=== PATIENT | female | born 1950 | race Caucasian/White ===

== ENCOUNTER → 2023-08-14 12:20 | Outpatient (REF) | payer MEDICARE, SELFPAY ==
[2023-08-14 14:09] LABS: % Basophils 0.8 % (0-2); % Eosinophils 1.1 % (0-6); % Immature Granulocytes 0.1 % (0-0.5); % Lymphocytes 38.9 % (20.5-51.1); % Monocytes 8.5 % (1.7-9.3); % Neutrophils 50.6 % (42.2-75.2); Absolute Basophils 0.1 10^3/uL (0-0.2); Absolute Eosinophils 0.1 10^3/uL (0-0.7); Absolute Lymphocytes 3.3 10^3/uL (1.2-3.4); Absolute Monocytes 0.7 10^3/uL (0.1-0.6); Absolute Neutrophils 4.3 10^3/uL (1.4-6.5); Hematocrit 44.1 % (37.0-47.0); Hemoglobin 14.2 g/dL (12.0-16.0); Mean Corp Hgb Conc. 32.2 g/dL (33.0-37.0); Mean Corpuscular Hgb 33.1 pg (27.0-31.0); Mean Corpuscular Volume 102.8 fL (81.0-99.0); Mean Platelet Volume 11.8 fL (7.4-10.4); Nucleated Red Blood Cells % 0 %; Platelet Count 276 10^3/uL (130-400); Red Blood Cell Count 4.29 10^6/uL (4.20-5.40); Red Cell Dist. Width 14.6 % (11.5-14.5); White Blood Cell Count 8.4 10^3/uL (4.8-10.8)
[2023-08-14 14:53] LABS: TSH 2.75 uIU/ml (0.47-4.68)
[2023-08-14 15:42] LABS: ALT (SGPT) 18 U/L (0-35); AST (SGOT) 26 U/L (14-36); Albumin 4.1 g/dl (3.5-5.0); Alkaline Phosphatase 75 U/L (38-126); Blood Urea Nitrogen 16 mg/dl (7-17); Calcium 9.7 mg/dl (8.4-10.2); Carbon Dioxide 33 mmol/L (22-30); Chloride 98 mmol/L (98-107); Glucose 86 mg/dl (70-99); HDL Cholesterol 62 mg/dl; LDL Cholesterol, Calculated 72 mg/dl; Potassium 4.1 mmol/L (3.5-5.1); Sodium 138 mmol/L (135-145); Total Bilirubin 0.5 mg/dl (0.2-1.3); Total Cholesterol 155 mg/dl (50-199); Total Protein 6.7 g/dl (6.3-8.2); Triglyceride 107 mg/dl (10-149); Very Low Density Lipoprotein 21 mg/dl (0-30); eGFR > 60.00
[2023-08-15 09:34] LABS: Intact PTH 93.4 pg/ml (13.6-85.8)
== END ==
LOC: RAD 12:20
PROVIDERS: Family Medicine; ATTENDING PHYSICIAN Internal Medicine Cardiovascular Disease; FAMILY PHYSICIAN Internal Medicine Geriatric Medicine; REFERRING PHYSICIAN Internal Medicine Rheumatology
DX: E20.89 Other specified hypoparathyroidism (principal); E55.9 Vitamin D deficiency, unspecified; M80.00XA Age-related osteoporosis with current pathological fracture, unspecified site, initial encounter for fracture; Z51.81 Encounter for therapeutic drug level monitoring; E78.00 Pure hypercholesterolemia, unspecified; Z79.899 Other long term (current) drug therapy; M54.16 Radiculopathy, lumbar region; M48.062 Spinal stenosis, lumbar region with neurogenic claudication
CPT/HCPCS: 36415; 72110; 80053; 80061; 82306; 83970; 84443; 85025

== ENCOUNTER 2023-08-25 14:49 | Emergency (ER) | payer MEDICARE, SELFPAY ==
[2023-08-25 14:51] VITALS: BP 139/64; BMI 36.1
--- NOTE | 2023-08-25 15:18 | EDRN ---
Brian CALZADA in room w/ pt at this time.
--- NOTE | 2023-08-25 15:25 | ED.GENMED ---
History of Present Illness
General
Chief Complaint: Extremity Pain (non-traumatic)
Source: patient
Exam Limitations: none
Time Seen by Provider: 08/25/23 15:01
Nursing documentation reviewed up to this point in time: agreed with
Travel History
Have you had any contact with someone who has COVID-19?: No
Do you have any symptoms of coronavirus? Fever > 100 degrees, chills, cough, shortness of breath, sore throat, loss of taste or smell, muscle aches, or headache?: No
History of Present Illness
History of Present Illness:
Patient is a 72-year-old female with history atrial fibrillation on Eliquis, CHF, CAD, hypertension, osteoporosis presenting for evaluation of left shoulder pain. Patient states pain started on Monday and has progressively been worsening since.
She reports pain in the anterior and posterior aspect of shoulder radiating down through the left arm. Patient denies any numbness or tingling in left upper extremity. Pain has been very severe and not relieved with Tylenol. She is unable to
actively move her left arm. She denies any chest pain, shortness of breath, abdominal pain.
Patient does also report having a headache yesterday with some pain in her neck. This has since resolved.
Of note�patient did receive a Prolia injection in her left deltoid on Monday08/16/23. She receives injections every 6 months. She has never had a reaction in the past.
Patient does have known rotator cuff injuries.
Past History
Past History
ED Past Medical History: Arrthythmia (afib), CAD, CVA (TIA), GERD, HTN, Hypercholesterolemia, PR and Other (Orthostatic hypotension, Diverticulitis, Diastolic heart failrue)
ED Past Surgical History: Appendectomy, Cardiac (PTCA with stent), Cholecystectomy, Gynecological (hyster) and Orthopedic (right TKR, left elbow, b/l rotator cuff)
Social History
Tobacco: Smoker
Alcohol: None
Drug: None
Personal:
Living: with family
Employment: Not employed
Family History
Family History: Other (Noncontributory)
Phy Exam
Physical Exam
Physical Exam:
General: Well appearing and non-toxic
Vitals: Vital signs stable, afebrile
HEENT: Atraumatic, normocephalic; pupils equal round and reactive light bilaterally,protecting airway
Neck: appears supple, normal range of motion, no cervical spine tenderness or midline spinal tenderness
CV: Regular rate and rhythm, no evidence of cyanosis
Resp: No evidence of respiratory distress, diminished at bases, no accessory muscle use
Abd: Non-distended
Extremities: Significant pain and limited range of motion of left arm, no bony tenderness or obvious deformity/ swelling, left upper extremity neurovascularly intact
Neuro: alert and oriented x 3; grossly intact
Psych: Normal affect
Skin: Intact, no rashes or bruising
Course
Orders/Labs/Results
Orders:
Orders
08/25/23 15:36
Oxycodone/Acetaminophen [Percocet 5/325] 1 tablet PO NOW STA
Shoulder, Left 2 View CR [CR Shoulder - Left Min 2 View*] Urgent
Comment:
Reason For Exam: Atraumatic left shoulder and arm pain
08/25/23 15:57
CPK [Creatine Phosphokinase] Urgent
Complete Blood Count/With Diff Urgent
Comprehensive Metabolic Panel Urgent
08/25/23 17:10
Sling Left-Treatment ONCE
Abnormal Lab Results
08/25/23
15:57
RBC 4.01 L 10^6/uL
(4.20-5.40)
MCV 104.5 H fL
(81.0-99.0)
MCH 33.2 H pg
(27.0-31.0)
MCHC 31.7 L g/dL
(33.0-37.0)
MPV 11.3 H fL
(7.4-10.4)
Absolute Monos (auto) 0.8 H 10^3/uL
(0.1-0.6)
Monocytes % 10.0 H %
(1.7-9.3)
Glucose 137 H mg/dl
(70-99)
08/25/23 15:57
08/25/23 15:57
Vital Signs
Initial and Last Documented VS:
Initial Vital Signs
Temp Pulse Resp BP Pulse Ox
98.2 F 66 16 139/64 99
08/25/23 14:51 08/25/23 14:51 08/25/23 14:51 08/25/23 14:51 08/25/23 14:51
Last Documented Vital Signs
Temp Pulse Resp BP Pulse Ox
98.2 F 63 18 136/69 93
08/25/23 14:51 08/25/23 16:43 08/25/23 16:43 08/25/23 16:43 08/25/23 16:43
MDM/Problems Addressed
Differential Diagnosis Includes:
Rotator cuff injury, tendinitis, muscular strain, medication side effect, rhabdomyolysis, doubt fracture, highly doubt ACS
MDM/Problems Addressed:
Patient is a 72-year-old female with history as documented presenting for evaluation of atraumatic left shoulder and arm pain. She did receive Prolia injection and left deltoid 10 days ago with pain starting 7 days following injection. And
worsening since. She endorses significant pain left shoulder rating down left arm and associated weakness. No relief with Tylenol. Patient's vital signs are stable, physical exam as documented above. She does have significant pain to left
anterior lateral pectineus muscle, bicep. She has significant reduced range of motion due to pain in left arm. Left arm is neurovascularly intact. Pain is clearly reproducible on exam. Do not suspect ACS. Percocet for pain. Will check x-ray of
shoulder and basic labs, CPK to rule out rhabdo. I do not suspect that this is related to Prolia injection given pain did not start until 1 week following injection.
4:25�reassessed patient at bedside. She endorses somewhat improvement since Percocet. X-ray pending. Labs noted. CK is normal.
X-ray shows no evidence of acute fracture or dislocation. 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 This appears consistent with patient's symptoms.
Pain is definitely improved and patient appears more comfortable after Percocet. Will discharge with shoulder sling, Percocet, Ortho follow-up. Patient comfortable this plan. Will follow-up with Dr. Montes on Monday. All questions answered.
Chronic conditions affecting care:
Osteoporosis
Acute Exacerbation and/or Progression of Chronic Illness:
N/A
*Radiology
Radiology exam reviewed: preliminary read by ED provider and radiology read reviewed
*Pulse Oximetry
Patient hypoxic: no
*EKG
Interpreted by ED Provider?: NA
*Supervisor Sample Interpretation
Rate: Supervisor Sample- N/A
*Critical Care Note
Total Time (30-74mins, 75-104mins- exclusive of procedures): Not Applicable
ED Attending Note
-
Portions of this chart may have been created with voice recognition software.� Occasional wrong word or��sound alike� substitutions may have occurred due to the inherent limitations of voice recognition software.
Discharge Plan
Departure
Patient Disposition: Home (Routine Discharge)
Date of Disposition: 08/25/23
Time of Disposition: 17:29
Patient with high blood pressure during this ER visit?: No
Condition: Good
Covid-19: Not Applicable
Discharge Problem:
Left shoulder pain
Instructions: Rotator Cuff Injury (DC), Shoulder Impingement (DC)
Prescriptions:
New
oxycodone 5 mg tablet
5 mg PO Q6H PRN (Reason: Pain) Qty: 10 0RF
No Action
rosuvastatin 20 MG tablet
20 mg PO HS
clopidogrel 75 MG tablet
75 mg PO HS Qty: 0 0RF
Rx Instructions:
resume 5/14 pm
Eliquis 5 MG tablet
5 mg PO BID Qty: 0 0RF
Spiriva
2 puff inhalation AMHS
amiodarone 200 mg Tablet
200 mg PO BID
furosemide 80 mg Tablet
80 mg PO DAILY
aspirin 81 mg Tablet
81 mg MOWEFR
ezetimibe [Zetia] 10 mg Tablet
10 mg PO DAILY
nebivolol 10 mg Tablet
10 mg PO DAILY
B12 5,000-100 mcg Lozenge
1 samia SUBLINGUAL DAILY
lorazepam 0.5 mg Tablet
0.5 mg PO DAILY PRN (Reason: anxiety)
Patient Comments:
last taken 6 months ago pre MRI
ascorbic acid (vitamin C) [Vitamin C] 500 mg Tablet,Chewable
1,500 mg PO DAILY
Patient Comments:
pt takes 3 500mg tabs daily
nitroglycerin [Nitrostat] 0.4 mg Tablet, Sublingual
0.4 mg SUBLINGUAL Q5-15M PRN (Reason: rescue)
Patient Comments:
pt has script, but has never used
levalbuterol tartrate [Xopenex HFA] 45 mcg/actuation Hfa Aerosol Inhaler
2 inh INHALATION Q6H PRN (Reason: breathing)
Patient Comments:
pt last used rescue inhaler approx 6 weeks ago
cholecalciferol (vitamin D3) [Vitamin D3] 50 mcg (2,000 unit) Capsule
50 mcg PO DAILY
Calcium 500 capsule
1,500 mg PO DAILY
Patient Comments:
3 - 500mg tabs daily
Referrals:
Christos Montes MD [Active] - Next open appointment
Salvador Sterling MD [Family Provider] -
Activity Restrictions/Additional Instructions:
-Return to the emergency department with any chest pain, shortness of breath, high fevers, numbness/tingling in left arm, intractable pain, worsening in current symptoms, or any other concerns
-You should continue to take Tylenol for mild pain. A prescription has been sent to your pharmacy for oxycodone. You can take this as needed for severe pain. This may cause drowsiness. You should not drive while taking this medication
-As discussed�it is important that you continue to move your shoulder around as often as possible to avoid frozen shoulder. Do not sleep with your arm and shoulder sling
-As discussed�I do not believe that your pain is due to your most recent injection. But you should follow-up with your chief of production for their input/further manage
-Follow-up with orthopedics in the next few days for further evaluation/manage
Interventions
Interventions:
*Risk Screen - Suicide Last Done: 08/25/23 14:51
*General Assessment Last Done: 08/25/23 15:33
*Neglect/Abuse Screening Last Done: 08/25/23 14:51
ED- Fall Risk Assessment Last Done: 08/25/23 15:33
*ED COVID-19 Vaccine History Last Done: 08/25/23 14:51
*Nursing Disposition Last Done: 08/25/23 17:40
ED-Skin Assessment Last Done: 08/25/23 15:36
ED-Peripheral Vascular Assessment Last Done: 08/25/23 15:36
ED-Musculoskeletal Assessment Last Done: 08/25/23 15:36
Discharge Date and Time
Discharge Date/Time: 08/25/23 17:40
Print Language: DOMINICAN
--- NOTE | 2023-08-25 15:50 | EDRN ---
Labs drawn and sent.
[2023-08-25] MEDS: PERCOCET 5/325 1 TABLET PO (15:51)
[2023-08-25 16:04] LABS: % Basophils 0.7 % (0-2); % Eosinophils 0.7 % (0-6); % Immature Granulocytes 0.2 % (0-0.5); % Lymphocytes 25.4 % (20.5-51.1); Absolute Basophils 0.1 10^3/uL (0-0.2); Absolute Eosinophils 0.1 10^3/uL (0-0.7); Absolute Lymphocytes 2.1 10^3/uL (1.2-3.4); Absolute Monocytes 0.8 10^3/uL (0.1-0.6); Absolute Neutrophils 5.3 10^3/uL (1.4-6.5); Hematocrit 41.9 % (37.0-47.0); Hemoglobin 13.3 g/dL (12.0-16.0); Mean Corp Hgb Conc. 31.7 g/dL (33.0-37.0); Mean Corpuscular Hgb 33.2 pg (27.0-31.0); Mean Corpuscular Volume 104.5 fL (81.0-99.0); Mean Platelet Volume 11.3 fL (7.4-10.4); Nucleated Red Blood Cells % 0 %; Platelet Count 260 10^3/uL (130-400); Red Blood Cell Count 4.01 10^6/uL (4.20-5.40); Red Cell Dist. Width 14.4 % (11.5-14.5); White Blood Cell Count 8.4 10^3/uL (4.8-10.8)
[2023-08-25 16:17] LABS: ALT (SGPT) 15 U/L (0-35); AST (SGOT) 22 U/L (14-36); Albumin 3.7 g/dl (3.5-5.0); Alkaline Phosphatase 65 U/L (38-126); Blood Urea Nitrogen 15 mg/dl (7-17); Calcium 9.2 mg/dl (8.4-10.2); Carbon Dioxide 30 mmol/L (22-30); Chloride 104 mmol/L (98-107); Creatine Phosphokinase 34 U/L (30-135); Estimated Creatinine Clearance 75 ml/min; Glucose 137 mg/dl (70-99); Potassium 4.7 mmol/L (3.5-5.1); Sodium 135 mmol/L (135-145); Total Bilirubin 0.3 mg/dl (0.2-1.3); Total Protein 6.3 g/dl (6.3-8.2); eGFR > 60.00
[2023-08-25 16:43] VITALS: BP 136/69
--- NOTE | 2023-08-25 17:40 | EDRN ---
Pt discharged solely by Brian CALZADA at this time.
== END 2023-08-25 17:40 | disposition home or self-care (01) ==
LOC: EMR 14:49
PROVIDERS: Physician Assistant; EMERGENCY PHYSICIAN Emergency Medicine; FAMILY PHYSICIAN Internal Medicine Geriatric Medicine
DX: M25.512 Pain in left shoulder (principal); M79.602 Pain in left arm; M62.81 Muscle weakness (generalized); M54.2 Cervicalgia; R51.9 Headache, unspecified; M81.0 Age-related osteoporosis without current pathological fracture; I48.91 Unspecified atrial fibrillation; I25.10 Atherosclerotic heart disease of native coronary artery without angina pectoris; I11.0 Hypertensive heart disease with heart failure; I50.30 Unspecified diastolic (congestive) heart failure; K57.92 Diverticulitis of intestine, part unspecified, without perforation or abscess without bleeding; I42.9 Cardiomyopathy, unspecified; K44.9 Diaphragmatic hernia without obstruction or gangrene; M19.90 Unspecified osteoarthritis, unspecified site; M79.7 Fibromyalgia; K58.9 Irritable bowel syndrome, unspecified; K21.9 Gastro-esophageal reflux disease without esophagitis; E78.00 Pure hypercholesterolemia, unspecified; F17.210 Nicotine dependence, cigarettes, uncomplicated; I25.2 Old myocardial infarction; Z95.5 Presence of coronary angioplasty implant and graft; Z96.651 Presence of right artificial knee joint; Z96.622 Presence of left artificial elbow joint; Z86.73 Personal history of transient ischemic attack (TIA), and cerebral infarction without residual deficits; Z86.74 Personal history of sudden cardiac arrest
CPT/HCPCS: 99283; 73030; 80053; 82550; 85025

== ENCOUNTER 2023-08-28 22:23 | Inpatient (IN) | payer MEDICARE, SELFPAY ==
[2023-08-28 11:12] VITALS: BP 138/73
--- NOTE | 2023-08-28 12:46 | ED.GENMED ---
History of Present Illness
<Sendy Baxter [employer]ER - Last Filed: 08/30/23 14:42>
General
Chief Complaint: Headache
Source: patient
Exam Limitations: none
Time Seen by Provider: 08/28/23 11:45
Nursing documentation reviewed up to this point in time: agreed with
Travel History
Have you had any contact with someone who has COVID-19?: No
Do you have any symptoms of coronavirus? Fever > 100 degrees, chills, cough, shortness of breath, sore throat, loss of taste or smell, muscle aches, or headache?: No
History of Present Illness
History of Present Illness:
72-year-old female with history of frequent headaches, TIA, smoker, A-fib on Eliquis and clopidogrel, cardiac arrest, cardiomyopathy, CHF, CAD, HLD, HTN, TX, GERD presents with headache, nausea/vomiting, denies change in vision, no recent trauma,
anticoagulated on Eliquis. Pain goes up the back of her neck up and over her head. Pain was intermittent initially but worsened 2 days ago.
Has been taking Oxycodone for left shoulder and arm pain with no relief of the headache.
She has out pt CT abdomen scheduled today for 'lump' in abdomen (r/o hernia), 'horrible' belching, she has to be prepped and couldn't do it due to nausea
she has developed a cough past few days and is concerned she aspirated as she has done so in the past.
Past History
<Sendy Baxter [employer] - Last Filed: 08/30/23 14:42>
Past History
ED Past Medical History: Arrthythmia (afib), CAD, CVA (TIA), GERD, HTN, Hypercholesterolemia, TX and Other (Orthostatic hypotension, Diverticulitis, Diastolic heart failrue)
ED Past Surgical History: Appendectomy, Cardiac (PTCA with stent), Cholecystectomy, Gynecological (hyster) and Orthopedic (right TKR, left elbow, b/l rotator cuff)
Social History
Tobacco: Smoker
Alcohol: None
Drug: None
Personal:
Living: with family
Employment: Not employed
Family History
Family History: Other (Noncontributory)
Review of Systems
<Sendy Baxter, LIQU[employer]ER - Last Filed: 08/30/23 14:42>
Review of Systems
Allergies reviewed?: Yes
All Other Systems: ROS reviewed and negative except as documented in HPI and ROS
Constitutional: Denies fever
EENT: Reports other (clogged feeling left ear since this a.m.); Denies sore throat
Respiratory: Reports cough
Cardiac: Denies chest pain
ABD/GI: Reports abdominal pain ('lump, hernia' near umbilicus has out pt CT ordered); Denies nausea, vomiting, diarrhea, constipated, bloody stools, black stools or anorexia
: Denies dysuria, frequency, incontinence, difficulty voiding or urgency
Musculoskeletal: Reports neck pain and other (After receiving Prolia IM injection in L upper arm 08/15, has had significant left arm pain radiating to left lateral chest area); Denies edema
Skin: Reports no symptoms
Neurological: Reports headache; Denies dizzy or weakness
Phy Exam
<Sendy Baxter, LIQU[employer]ER - Last Filed: 08/30/23 14:42>
Physical Exam
Physical Exam:
GENERAL: No acute distress. A&Ox3.
CONSTITUTIONAL: Afebrile.
EYES: PERRL, conjunctivae normal, EOMs intact
Neck: Supple, no lymphadenopathy
ENMT: moist mucus membranes, Pharynx nl, TMs normal, ear canals clear
RESPIRATORY: Regular respirations, nonlabored, lungs clear.
CARDIOVASCULAR: Regular rate and rhythm, no murmurs, no rubs.
GI: Soft, nontender mobile mass just to right of umbilicus. Rest of abdomen non tender. Normal BS
MUSCULOSKELETAL: Left arm in sling, limited ROM due to pain, distal neurovascular intact. No edema. Well perfused.
SKIN: Warm, dry, pink
PSYCH: Normal mood and affect. Well kept, interactive and appropriate
NEUROLOGIC: Awake, alert and oriented. Speech clear. Strength equal throughout. No focal neurological deficits
Course
<Sendy Sargent Day, LIQU[employer]KER - Last Filed: 08/30/23 14:42>
Orders/Labs/Results
Orders:
Orders
08/28/23 12:58
0.9% Sodium Chloride 500 ml [Nss] 500 ml IV BOLUS
HYDROmorphone [Dilaudid] 0.5 mg IV NOW STA
Ondansetron Injectable [Zofran] 4 mg IV NOW STA
08/28/23 13:17
CR Chest - 2 Views Urgent
Comment:
Reason For Exam: cough, hx aspiration pna
08/28/23 13:25
Urinalysis Reflex To Culture Urgent
Date Specimen was Collected: 08/28/23
Time Specimen was Collected: 13:23
Urine Microscopic Reflex Cult Urgent
Urine Culture Urgent
JAYDEN Source: U
Specimen Description:
Date Specimen was Collected: 08/28/23
Time Specimen was Collected: 13:23
08/28/23 14:24
Complete Blood Count/With Diff Urgent
08/28/23 14:37
Ipratropium/Albuterol Sulfate [Duoneb] 3 ml .ROUTE .STK-MED ONE
08/28/23 14:41
Levalbuterol [Xopenex 1.25 mg Inhalant Solution] 1.25 mg .ROUTE .STK-MED ONE
08/28/23 14:42
Levalbuterol [Xopenex 1.25 mg Inhalant Solution] 1.25 mg INH R NOW STA
Levalbuterol [Xopenex 1.25 mg Inhalant Solution] 1.25 mg INH R NOW STA
08/28/23 Dinner
NPO
Allow oral meds: Yes
Allow clear liquids: Sips of Clears
NPO with Ice Chips: Yes
08/28/23 16:11
CT Head W/o Iv Contrast Urgent
Comment:
Reason For Exam: headache, on Eliquis
08/28/23 16:30
Comprehensive Metabolic Panel Urgent
08/28/23 17:15
ABG [Arterial Blood Gas] Urgent
%Oxygen/Room Air: Room air
08/28/23 17:23
Methemoglobin Urgent
08/28/23 17:40
O2 Therapy [RESP] Urgent
Nasal Cannula Liter Flow: 3 LPM
Titrate/Wean O2 to maintain O2 sat greater than (%): 94
08/28/23 17:41
CT Chest Pe Study Urgent
Comment:
Reason For Exam: cough, hypoxemia
08/28/23 18:06
Diphenhydramine [Benadryl] 50 mg IV NOW STA
Hydrocortisone Sod Succinate [Solu-Cortef] 200 mg IV NOW STA
08/28/23 18:21
COVID-19 Antigen Urgent
Source: Nasal Swab
08/28/23 18:53
Levalbuterol [Xopenex 1.25 mg Inhalant Solution] 1.25 mg .ROUTE .STK-MED ONE
08/28/23 18:54
Levalbuterol [Xopenex 1.25 mg Inhalant Solution] 1.25 mg INH R NOW STA
08/28/23 21:06
Azithromycin 500 mg/250 ml [Zithromax Infusion] 500 mg in 250 ml IV NOW
CefTRIAXone [Rocephin] 1,000 mg IV NOW STA
08/28/23 21:08
Electrocardiogram (*1) Urgent
Reason for Study: QTc Monitoring
EKG- Treatment ONCE
08/28/23 21:18
Sterile Water [Sterile Water For Injection] 10 ml .ROUTE .STK-MED ONE
08/28/23 21:50
Admit/Transfer Patient As Directed
Co-Sign Provider:
Level of Care: Inpatient admission
Assign to:: Telemetry
Physician / Group: shaniqua
Diagnosis: nausea/vomiting
Reason for Telemetry: Arrhythmia
Date to Stop Telemetry: 08/31/23
Time to Stop Telemetry: 11:00
Reason for Hospitalization: nausea/vomiting
Expected length of stay greater than two midnights?: Yes
ELOS- Estimated Length of Stay in days: 2
I certify the patient meets the requirements for IP care: Yes
08/28/23 21:51
Code Status As Directed
Resuscitation Status: Full Code
08/28/23 21:52
Sputum Culture [Respiratory Culture/Gram Stain] Urgent
JAYDEN Source: Sputum
Specimen Description:
08/28/23 21:55
Blood Culture Q30M
JAYDEN Source: Blood/Venous
Specimen Description:
Blood Culture Q30M
JAYDEN Source: Blood/Venous
Specimen Description:
Influenza A+B Rapid Molecular Urgent
JAYDEN Source: Nasal Swab
Specimen Description:
08/28/23 22:01
Consult Notification Routine
Specialty to Notify: Neurology
Date consulting provider notified: 08/29/23
Time consulting provider notified: 07:55
Notified:: Provider
NEUROLOGY CONSULT Routine
Consulting Provider: Thierno Stokes
Was physician already notified: No
Reason for consult: cva vs mass
08/28/23 23:06
Acetaminophen [Tylenol] 1,000 mg PO BIDPRN PRN
Ipratropium Nebs [Atrovent Nebules] 0.5 mg INH R Q8HPRN PRN
Levalbuterol Tartrate [Xopenex Hfa 45 Mcg Inhaler] 1 puff INH R Q4HPRN PRN
Ondansetron Injectable [Zofran] 4 mg IV Q6HPRN PRN
Ondansetron Orally Disint [Zofran Odt (Orally Disintegrating)] 4 mg PO [id number] PRN
Oxycodone [Roxicodone] 5 mg PO Q6HPRN PRN
08/28/23 23:06
Activity As Directed
Activity Level: As Tolerated
NIH Stroke Scale As Directed
Directions: Per protocol
Neurological Checks As Directed
Frequency: Per unit guidelines
Pneumatic Compression Sleeves As Directed
Type: Knee high
Vital Signs As Directed
Frequency: Per unit guidelines
Xopenex Reason for Use As Directed
Reason for ordering Xopenex instead of Albuterol: tachy
DX Deep Vein Thrombosis Video Routine
08/29/23 00:00
Doxycycline Hyclate [Vibramycin] 100 mg 0.9% Sodium Chloride 250 ml [Nss] 250 ml IV Q12H
08/29/23 06:22
Complete Blood Count/With Diff IN AM
Comprehensive Metabolic Panel IN AM
08/29/23 08:00
Calcium Carbonate [Oscal Dong 500] 1,500 mg PO BID
Furosemide [Lasix] 80 mg PO DAILY
Nicotine [Nicoderm Transdermal] 7 mg TRANSDERM DAILY
Pantoprazole [Protonix] 40 mg PO BID
08/29/23 22:00
Amiodarone [Pacerone] 200 mg PO HS
Ascorbic Acid [Vitamin C] 1,500 mg PO HS
CefTRIAXone [Rocephin] 1,000 mg IV Q24H
Cholecalciferol (Vitamin D3) [VITAMIN D3 (cholecalciferol)] 50 mcg PO HS
Clopidogrel Bisulfate [Plavix] 75 mg PO HS
Ezetimibe [Zetia] 10 mg PO HS
Rosuvastatin Calcium [Crestor] 20 mg PO HS
cyanocobalamin-cobamamide [B12] 1 asmia SL HS
08/30/23 22:00
Aspirin Low Dose EC [Aspir Low (Enteric Coated)] 81 mg PO MOWEFR@2200
08/31/23 11:00
DC Protocol for Telemetry ONCE
Abnormal Lab Results
08/28/23 08/28/23 08/28/23
13:25 14:24 16:30
RBC 3.86 L 10^6/uL
(4.20-5.40)
MCV 102.1 H fL
(81.0-99.0)
MCH 33.4 H pg
(27.0-31.0)
MCHC 32.7 L g/dL
(33.0-37.0)
MPV 11.5 H fL
(7.4-10.4)
Absolute Monos (auto) 0.9 H 10^3/uL
(0.1-0.6)
Monocytes % 10.0 H %
(1.7-9.3)
pCO2
pO2
HCO3
ABG O2 Sat (Measured)
Sodium 134 L mmol/L
(135-145)
Carbon Dioxide 31 H mmol/L
(22-30)
Creatinine 0.5 L mg/dL
(0.6-1.0)
Calcium 8.3 L mg/dl
(8.4-10.2)
Total Protein 6.1 L g/dl
(6.3-8.2)
Ur Occult Blood Reflex 1+ A
(Negative)
Leukocyte Esterase Rfl 1+ A
(Negative)
Urine RBC 3-6 A /HPF
(0-2)
Urine Bacteria (Reflex) Few A
(Negative)
08/28/23
17:15
RBC
MCV
MCH
MCHC
MPV
Absolute Monos (auto)
Monocytes %
pCO2 57 H mmHg
(32-35)
pO2 43 L* mmHg
(83-108)
HCO3 32.2 H mmol/L
(21-28)
ABG O2 Sat (Measured) 74.6 L %
(94-98)
Sodium
Carbon Dioxide
Creatinine
Calcium
Total Protein
Ur Occult Blood Reflex
Leukocyte Esterase Rfl
Urine RBC
Urine Bacteria (Reflex)
08/28/23 14:24
08/28/23 16:30
Vital Signs
Initial and Last Documented VS:
Initial Vital Signs
Temp Pulse Resp BP Pulse Ox
98.1 F 65 18 138/73 90
08/28/23 11:12 08/28/23 11:12 08/28/23 11:12 08/28/23 11:12 08/28/23 11:12
Last Documented Vital Signs
Temp Pulse Resp BP Pulse Ox
97.7 F 72 20 127/48 95
08/30/23 11:00 08/30/23 11:00 08/30/23 11:00 08/30/23 11:00 08/30/23 13:56
Suhaillt;Lyndon Finch, - Last Filed: 08/28/23 21:58>
Orders/Labs/Results
Orders:
Orders
08/28/23 12:58
0.9% Sodium Chloride 500 ml [Nss] 500 ml IV BOLUS
HYDROmorphone [Dilaudid] 0.5 mg IV NOW STA
Ondansetron Injectable [Zofran] 4 mg IV NOW STA
08/28/23 13:17
CR Chest - 2 Views Urgent
Comment:
Reason For Exam: cough, hx aspiration pna
08/28/23 13:25
Urinalysis Reflex To Culture Urgent
Date Specimen was Collected: 08/28/23
Time Specimen was Collected: 13:23
Urine Microscopic Reflex Cult Urgent
Urine Culture Urgent
JAYDEN Source: U
Specimen Description:
Date Specimen was Collected: 08/28/23
Time Specimen was Collected: 13:23
08/28/23 14:24
Complete Blood Count/With Diff Urgent
08/28/23 14:37
Ipratropium/Albuterol Sulfate [Duoneb] 3 ml .ROUTE .STK-MED ONE
08/28/23 14:41
Levalbuterol [Xopenex 1.25 mg Inhalant Solution] 1.25 mg .ROUTE .STK-MED ONE
08/28/23 14:42
Levalbuterol [Xopenex 1.25 mg Inhalant Solution] 1.25 mg INH R NOW STA
Levalbuterol [Xopenex 1.25 mg Inhalant Solution] 1.25 mg INH R NOW STA
08/28/23 Dinner
NPO
Allow oral meds: Yes
Allow clear liquids: Sips of Clears
NPO with Ice Chips: Yes
08/28/23 16:11
CT Head W/o Iv Contrast Urgent
Comment:
Reason For Exam: headache, on Eliquis
08/28/23 16:30
Comprehensive Metabolic Panel Urgent
08/28/23 17:15
ABG [Arterial Blood Gas] Urgent
%Oxygen/Room Air: Room air
08/28/23 17:23
Methemoglobin Urgent
08/28/23 17:40
O2 Therapy [RESP] Urgent
Nasal Cannula Liter Flow: 3 LPM
Titrate/Wean O2 to maintain O2 sat greater than (%): 94
08/28/23 17:41
CT Chest Pe Study Urgent
Comment:
Reason For Exam: cough, hypoxemia
08/28/23 18:06
Diphenhydramine [Benadryl] 50 mg IV NOW STA
Hydrocortisone Sod Succinate [Solu-Cortef] 200 mg IV NOW STA
08/28/23 18:21
COVID-19 Antigen Urgent
Source: Nasal Swab
08/28/23 18:53
Levalbuterol [Xopenex 1.25 mg Inhalant Solution] 1.25 mg .ROUTE .STK-MED ONE
08/28/23 18:54
Levalbuterol [Xopenex 1.25 mg Inhalant Solution] 1.25 mg INH R NOW STA
08/28/23 21:06
Azithromycin 500 mg/250 ml [Zithromax Infusion] 500 mg in 250 ml IV NOW
CefTRIAXone [Rocephin] 1,000 mg IV NOW STA
08/28/23 21:08
Electrocardiogram (*1) Urgent
Reason for Study: QTc Monitoring
EKG- Treatment ONCE
08/28/23 21:18
Sterile Water [Sterile Water For Injection] 10 ml .ROUTE .STK-MED ONE
08/28/23 21:50
Admit/Transfer Patient As Directed
Co-Sign Provider:
Level of Care: Inpatient admission
Assign to:: Telemetry
Physician / Group: shaniqua
Diagnosis: nausea/vomiting
Reason for Telemetry: Arrhythmia
Date to Stop Telemetry: 08/31/23
Time to Stop Telemetry: 11:00
Reason for Hospitalization: nausea/vomiting
Expected length of stay greater than two midnights?: Yes
ELOS- Estimated Length of Stay in days: 2
I certify the patient meets the requirements for IP care: Yes
08/28/23 21:51
Code Status As Directed
Resuscitation Status: Full Code
08/28/23 21:52
Sputum Culture [Respiratory Culture/Gram Stain] Urgent
JAYDEN Source: Sputum
Specimen Description:
08/28/23 21:55
Blood Culture Q30M
JAYDEN Source: Blood/Venous
Specimen Description:
Blood Culture Q30M
JAYDEN Source: Blood/Venous
Specimen Description:
Influenza A+B Rapid Molecular Urgent
JAYDEN Source: Nasal Swab
Specimen Description:
08/28/23 22:01
Consult Notification Routine
Specialty to Notify: Neurology
Date consulting provider notified: 08/29/23
Time consulting provider notified: 07:55
Notified:: Provider
NEUROLOGY CONSULT Routine
Consulting Provider: Thierno Stokes
Was physician already notified: No
Reason for consult: cva vs mass
08/28/23 23:06
Acetaminophen [Tylenol] 1,000 mg PO BIDPRN PRN
Ipratropium Nebs [Atrovent Nebules] 0.5 mg INH R Q8HPRN PRN
Levalbuterol Tartrate [Xopenex Hfa 45 Mcg Inhaler] 1 puff INH R Q4HPRN PRN
Ondansetron Injectable [Zofran] 4 mg IV Q6HPRN PRN
Ondansetron Orally Disint [Zofran Odt (Orally Disintegrating)] 4 mg PO [id number] PRN
Oxycodone [Roxicodone] 5 mg PO Q6HPRN PRN
08/28/23 23:06
Activity As Directed
Activity Level: As Tolerated
NIH Stroke Scale As Directed
Directions: Per protocol
Neurological Checks As Directed
Frequency: Per unit guidelines
Pneumatic Compression Sleeves As Directed
Type: Knee high
Vital Signs As Directed
Frequency: Per unit guidelines
Xopenex Reason for Use As Directed
Reason for ordering Xopenex instead of Albuterol: tachy
DX Deep Vein Thrombosis Video Routine
08/29/23 00:00
Doxycycline Hyclate [Vibramycin] 100 mg 0.9% Sodium Chloride 250 ml [Nss] 250 ml IV Q12H
08/29/23 06:22
Complete Blood Count/With Diff IN AM
Comprehensive Metabolic Panel IN AM
08/29/23 08:00
Calcium Carbonate [Oscal Dong 500] 1,500 mg PO BID
Furosemide [Lasix] 80 mg PO DAILY
Nicotine [Nicoderm Transdermal] 7 mg TRANSDERM DAILY
Pantoprazole [Protonix] 40 mg PO BID
08/29/23 22:00
Amiodarone [Pacerone] 200 mg PO HS
Ascorbic Acid [Vitamin C] 1,500 mg PO HS
CefTRIAXone [Rocephin] 1,000 mg IV Q24H
Cholecalciferol (Vitamin D3) [VITAMIN D3 (cholecalciferol)] 50 mcg PO HS
Clopidogrel Bisulfate [Plavix] 75 mg PO HS
Ezetimibe [Zetia] 10 mg PO HS
Rosuvastatin Calcium [Crestor] 20 mg PO HS
cyanocobalamin-cobamamide [B12] 1 samia SL HS
08/30/23 22:00
Aspirin Low Dose EC [Aspir Low (Enteric Coated)] 81 mg PO MOWEFR@2200
08/31/23 11:00
DC Protocol for Telemetry ONCE
Abnormal Lab Results
08/28/23 08/28/23 08/28/23
13:25 14:24 16:30
RBC 3.86 L 10^6/uL
(4.20-5.40)
MCV 102.1 H fL
(81.0-99.0)
MCH 33.4 H pg
(27.0-31.0)
MCHC 32.7 L g/dL
(33.0-37.0)
MPV 11.5 H fL
(7.4-10.4)
Absolute Monos (auto) 0.9 H 10^3/uL
(0.1-0.6)
Monocytes % 10.0 H %
(1.7-9.3)
pCO2
pO2
HCO3
ABG O2 Sat (Measured)
Sodium 134 L mmol/L
(135-145)
Carbon Dioxide 31 H mmol/L
(22-30)
Creatinine 0.5 L mg/dL
(0.6-1.0)
Calcium 8.3 L mg/dl
(8.4-10.2)
Total Protein 6.1 L g/dl
(6.3-8.2)
Ur Occult Blood Reflex 1+ A
(Negative)
Leukocyte Esterase Rfl 1+ A
(Negative)
Urine RBC 3-6 A /HPF
(0-2)
Urine Bacteria (Reflex) Few A
(Negative)
08/28/23
17:15
RBC
MCV
MCH
MCHC
MPV
Absolute Monos (auto)
Monocytes %
pCO2 57 H mmHg
(32-35)
pO2 43 L* mmHg
(83-108)
HCO3 32.2 H mmol/L
(21-28)
ABG O2 Sat (Measured) 74.6 L %
(94-98)
Sodium
Carbon Dioxide
Creatinine
Calcium
Total Protein
Ur Occult Blood Reflex
Leukocyte Esterase Rfl
Urine RBC
Urine Bacteria (Reflex)
08/28/23 14:24
08/28/23 16:30
Vital Signs
Initial and Last Documented VS:
Initial Vital Signs
Temp Pulse Resp BP Pulse Ox
98.1 F 65 18 138/73 90
08/28/23 11:12 08/28/23 11:12 08/28/23 11:12 08/28/23 11:12 08/28/23 11:12
Last Documented Vital Signs
Temp Pulse Resp BP Pulse Ox
97.7 F 72 20 127/48 95
08/30/23 11:00 08/30/23 11:00 08/30/23 11:00 08/30/23 11:00 08/30/23 13:56
<Sendy Baxter [employer] - Last Filed: 08/30/23 14:42>
MDM/Problems Addressed
Differential Diagnosis Includes:
ICH, migraine
COPD exacerbation, PNA
MDM/Problems Addressed:
72-year-old female with history of frequent headaches, TIA, smoker, A-fib on Eliquis and clopidogrel, cardiac arrest, cardiomyopathy, CHF, CAD, HLD, HTN, TX, GERD presents with 10/10 headache, nausea/vomiting, denies change in vision, no recent
trauma, anticoagulated on Eliquis. Pain goes up the back of her neck up and over her head. Pain was intermittent initially but worsened 2 days ago.
Has been taking Oxycodone for left shoulder and arm pain (which was addressed on her last ED visit on with no relief of the headache.
She has out pt CT abdomen scheduled for 'lump' in abdomen 'hernia,' 'horrible' belching, she has developed a cough past few days and is concerned she aspirated as she has done so in the past.
2:29 PM
Pt pulse ox 82-88% RA. Course junky non productive cough, afebrile
Pt states her home pulse ox is usually 93-95% RA
Chest x-ray: Radiology report read: NAD
Pt cannot tolerate Albuterol (gives her Afib) has used Xopenex
CBC: No clinically significant abnormality
CMP:
U/A neg
3:00 PM
Pt feeling much better, headache improving after Dilauded 0.5 mg now 5/10. Nausea is gone.
Xopenex neb administered. Pulse ox 96% during neb
After Xopenex treatment, pulse ox
Patient is in absolutely no distress, not tachypneic, not tachycardic, occasional coarse junky cough, negative chest x-ray
Pt placed in a different room, different pulse ox reads 76-80% on RA, rechecked on all different fingers of both hands and remains hypoxemic.
Case discussed with Dr. Finch
ABG, methemoglobin ordered
5:32 PM
ABG: pH 7.36 pCO2 57, pO2 43, HCO3 32.2, O2 sat 74.6
Methemoglobin is normal at 1.[address] Dr[address] Felipe who will assume care from this point
COVID test pending
Chest CT pending
Patient placed on oxygen 3 L nasal cannula
Chronic conditions affecting care: HTN, Cardiomyopathy and COPD
<Sendy Baxter [employer] - Last Filed: 08/30/23 14:42>
*Critical Care Note
Total Time (30-74mins, 75-104mins- exclusive of procedures): Not Applicable
ED Attending Note
<Sendy Baxter [employer] - Last Filed: 08/30/23 14:42>
-
Portions of this chart may have been created with voice recognition software.� Occasional wrong word or��sound alike� substitutions may have occurred due to the inherent limitations of voice recognition software.
<Lyndon Finch, - Last Filed: 08/28/23 21:58>
ED Attending Note
Patient seen and examined by attending physician: Yes
I performed the substantive portion of visit, reviewed & personally made and approve the management plan that is documented in note by myself or JONATHON.: Yes
ED Attending Note:
Patient presents for headache. Patient found to be hypoxic here but significantly actually. Initial evaluation included labs and a chest x-ray. Chest x-ray read as no acute disease by radiology. However the patient is hypoxic on different
devices. Her hypoxia was confirmed also with an arterial blood gas. Normal complex hemoglobin. Clinically the patient does not look particularly dyspneic but her headache certainly may be related to hypoxia. 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
disorder and states she is compliant with her Eliquis. She has not missed it for any reason recently. CT of the chest was performed that does not show any pulmonary embolism. However she does have changes in the right upper lobe that are
groundglass in nature. Pneumonia is a possibility. Patient is on amiodarone so I also question the possibility of pneumonitis related to medication. Patient will require hospitalization for supplemental oxygen, will start IV antibiotics but she
will need further evaluation to determine the reason for her significant hypoxia.
General: Awake, Alert, Oriented X3. No acute distress.
Vitals: unremarkable
Head: Atraumatic
Eyes: Pupils equal, EOMI
Throat: Airway intact, no exudates
Neck: Trachea midline
Lungs: Decreased breath sounds diffusely,
Heart: Regular rate, no murmurs
Abd: Soft, Nontender, No pulsatile mass
Neuro: Nonfocal
Skin: Warm, dry, no rash
Extremities: pulses equal b/l, no edema
Discharge Plan
Departure
Patient Disposition: Admit
Date of Disposition: 08/28/23
Time of Disposition: 21:17
Admit to: Med/Surg
Presentation/result/management discussed w/ accepting MD/DO: Hospitalist
Condition: Fair
Discharge Problem:
Hypoxia, Pneumonia
Interventions
Interventions:
*Risk Screen - Suicide Last Done: 08/28/23 14:48
*General Assessment Last Done: 08/28/23 14:48
*Neglect/Abuse Screening Last Done: 08/28/23 14:48
ED- Fall Risk Assessment Last Done: 08/28/23 21:33
*ED COVID-19 Vaccine History Last Done: 08/28/23 23:30
*Nursing Disposition Last Done: 08/28/23 23:03
ED- Neurological Assessment Last Done: 08/28/23 21:33
Discharge Date and Time
Discharge Date/Time: 08/28/23 23:04
[2023-08-28 13:39] LABS: Urine Albumin Negative (Neg - Trace); Urine Bilirubin Negative (Negative); Urine Character Clear (Clear); Urine Color Yellow; Urine Glucose Negative (Negative); Urine Ketone Negative (Negative); Urine Leukocyte 1+ (Negative); Urine Nitrite Negative (Negative); Urine Occult Blood 1+ (Negative); Urine Specific Gravity 1.015 (<1.030); Urine Urobilinogen Negative (Neg - 1+)
[2023-08-28 14:06] VITALS: BP 126/63
[2023-08-28] MEDS: NSS 500 IV (14:20)
[2023-08-28] MEDS: ZOFRAN 4 MG IV (14:20)
[2023-08-28] MEDS: DILAUDID 0.5 MG IV (14:21)
[2023-08-28 14:37] LABS: Urine Mucus Few; Urine Squamous Cell >30 /LPF (Few)
[2023-08-28 14:38] LABS: Urine Amorphous Seen
[2023-08-28 14:39] LABS: Urine Bacteria Few (Negative)
[2023-08-28] MEDS: XOPENEX 1.25 MG INHALANT SOLUTION INH ×2 (14:42→18:55)
[2023-08-28 14:43] LABS: % Basophils 0.5 % (0-2); % Eosinophils 0.5 % (0-6); % Immature Granulocytes 0.2 % (0-0.5); % Lymphocytes 27.7 % (20.5-51.1); % Neutrophils 61.1 % (42.2-75.2); Absolute Lymphocytes 2.4 10^3/uL (1.2-3.4); Absolute Monocytes 0.9 10^3/uL (0.1-0.6); Absolute Neutrophils 5.2 10^3/uL (1.4-6.5); Hematocrit 39.4 % (37.0-47.0); Hemoglobin 12.9 g/dL (12.0-16.0); Mean Corp Hgb Conc. 32.7 g/dL (33.0-37.0); Mean Corpuscular Hgb 33.4 pg (27.0-31.0); Mean Corpuscular Volume 102.1 fL (81.0-99.0); Mean Platelet Volume 11.5 fL (7.4-10.4); Nucleated Red Blood Cells % 0 %; Platelet Count 243 10^3/uL (130-400); Red Blood Cell Count 3.86 10^6/uL (4.20-5.40); Red Cell Dist. Width 14.1 % (11.5-14.5); White Blood Cell Count 8.5 10^3/uL (4.8-10.8)
[2023-08-28 16:32] VITALS: BP 121/59
[2023-08-28 16:51] LABS: ALT (SGPT) 22 U/L (0-35); AST (SGOT) 26 U/L (14-36); Albumin 3.5 g/dl (3.5-5.0); Alkaline Phosphatase 84 U/L (38-126); Blood Urea Nitrogen 9 mg/dl (7-17); Calcium 8.3 mg/dl (8.4-10.2); Carbon Dioxide 31 mmol/L (22-30); Chloride 102 mmol/L (98-107); Glucose 92 mg/dl (70-99); Potassium 3.9 mmol/L (3.5-5.1); Sodium 134 mmol/L (135-145); Total Bilirubin 0.4 mg/dl (0.2-1.3); Total Protein 6.1 g/dl (6.3-8.2); eGFR > 60.00
[2023-08-28 17:25] LABS: B.E. 5.1 mmol/L; HCO3 32.2 mmol/L (21-28); O2 Saturation % 74.6 % (94-98); PCO2 57 mmHg (32-35); pH 7.36 (7.35-7.45)
[2023-08-28 17:26] LABS: PO2 43 mmHg (83-108)
[2023-08-28] MEDS: SOLU-CORTEF 200 MG IV (18:16)
[2023-08-28] MEDS: BENADRYL 50 MG IV (18:17)
[2023-08-28 18:49] LABS: COVID-19 Antigen Negative (Negative)
[2023-08-28 21:24] VITALS: BMI 38.5
[2023-08-28] MEDS: ROCEPHIN 1000 MG IV (21:51)
[2023-08-28] MEDS: ZITHROMAX INFUSION 250 IV (21:54)
--- NOTE | 2023-08-28 21:56 | HPS.HSE ---
Addendum entered and electronically signed by Keira Sheffield MD 08/28/23 22:22:
Continue Aspirin and Plavix. No clear indication for why patient on ASA, plavix and Eliquis normally.
Original Note:
Family Physician
-
Family Physician: Salvador Sterling
Chief Complaint
-
nausea and vomiting
History of Present Illness
72-year-old female with past medical history of atrial fibrillation on Eliquis, CAD with stent, HFrEF, COPD, CVA, hypertension, GERD/hiatal hernia, migraines, left rotator cuff tears, hypercholesteremia, orthostatic hypotension, presenting with
headache, nausea and vomiting, cough. Headache started 4 days ago. Pain goes up the back of her neck and over the head. Pain is constant and tender to palpation. Patient has been taking oxycodone for left shoulder and arm pain without relief of
headache. Patient denies change in vision, recent trauma. Daughter noticed the right eyelid was drooping since yesterday. Patient states that she had similar headache when she had a stroke 2 years ago. He has a history of migraines in her youth.
She denies any sensitivity to light, floaters or aura. She denies any focal weakness, vertigo or numbness or tingling, difficulty swallowing or speaking.
Patient is also been having nausea for the past several days including vomiting today. She had acid reflux and took Pepcid yesterday with improvement in symptoms. She noticed a lump in her abdomen a few days ago and saw her primary who ordered a
CT scan of abdomen pelvis which she was supposed to have today. Patient is allergic to contrast and due to nausea did not go for CT scan.
She has also had cough which is intermittently productive for the past 2 days. Denies any shortness of breath. Denies any fevers but did have chills. Denies any chest pain.
Patient came to the emergency room 3 days ago for left shoulder pain. She received Prolia injection in the left deltoid 10 days ago with pain afterwards. Pain radiates down left arm associated with weakness. She has a history of rotator cuff
tears in her left upper extremity diagnosed 2 years ago but never underwent surgery due to being high risk due to her chronic medical conditions.
She smokes half a pack of cigarettes a day.
Medical History
Past Medical History
Past Medical History: Reports Other (atrial fibrillation on Eliquis, CAD with stent, HFrEF, COPD, CVA, hypertension, GERD/hiatal hernia, migraines, left rotator cuff tears, hypercholesteremia, orthostatic hypotension)
Past Surgical History: Reports Other (Appendectomy, Cardiac (PTCA with stent), Cholecystectomy, Gynecological (hyster) and Orthopedic (right TKR, left elbow, b/l rotator cuff))
Social History
Tobacco: Smoker
Alcohol: Occasional
Drug: None
Family History
Family History: Not pertinent
Allergies / Home Medications
Allergies reflects when Allergies were last updated in [facility].
Home Medications with original date entered in [facility]
Allergy/Medication List:
Allergies
Allergy/AdvReac Type Severity Reaction Status Date / Time
alendronate sodium Allergy dizzy, Verified 08/25/23 14:50
[From Fosamax] tight chest
duloxetine HCl Allergy heart Verified 08/25/23 14:50
[From Cymbalta] palpitations,vomiting
Iodinated Contrast Media Allergy Hives Verified 08/25/23 14:50
iodine Allergy Hives Verified 08/25/23 14:50
latex [Latex] Allergy Anaphylaxis Verified 08/25/23 14:50
niacin [Niacin] Allergy hives and Verified 08/25/23 14:50
burning
skin
oxycodone [Oxycodone] Allergy depressed, Verified 08/25/23 14:50
no appetite
simvastatin [From Zocor] Allergy myalgias Verified 08/25/23 14:50
valsartan [From Diovan] Allergy DIZZINESS Verified 08/25/23 14:50
symvisc Allergy Swelling Uncoded 04/05/24 14:50
Home Medications
rosuvastatin 20 mg tablet 20 mg PO HS High cholesterol 10/01/15
clopidogrel 75 mg tablet 75 mg PO HS Blood clot prevention/tx ##0 10/01/20
apixaban 5 mg tablet (Eliquis) 5 mg PO BID Blood clot prevention/tx ##0 10/15/20
Spiriva 2 puff inhalation AMHS 08/16/21
Calcium 500 1,500 mg PO DAILY 04/18/22
amiodarone 200 mg tablet 200 mg PO BID 04/18/22
ascorbic acid (vitamin C) 500 mg chewable tablet (Vitamin C) 1,500 mg PO DAILY 04/18/22
aspirin 81 mg tablet 81 mg MOWEFR 04/18/22
cholecalciferol (vitamin D3) 50 mcg (2,000 unit) capsule (Vitamin D3) 50 mcg PO DAILY 04/18/22
cyanocobalamin (B12)-cobamamide 5,000 mcg-100 mcg sublingual lozenge (B12) 1 samia sublingual DAILY 04/18/22
ezetimibe 10 mg tablet (Zetia) 10 mg PO DAILY 04/18/22
furosemide 80 mg tablet 80 mg PO DAILY 04/18/22
levalbuterol tartrate 45 mcg/actuation aerosol inhaler (Xopenex HFA) 2 inh inhalation Q6H PRN breathing 04/18/22
lorazepam 0.5 mg tablet 0.5 mg PO DAILY PRN anxiety 04/18/22
nebivolol 10 mg tablet 10 mg PO DAILY 04/18/22
nitroglycerin 0.4 mg sublingual tablet (Nitrostat) 0.4 mg sublingual Q5-15M PRN rescue 04/18/22
oxycodone 5 mg tablet 5 mg PO Q6H PRN Pain #10 tabs 08/25/23
Review of Systems
-
History Source: Patient
A 12 point ROS was completed and negative except as noted: Yes
Constitutional: Reports No Symptoms
EENT: Reports No Symptoms
Respiratory: Reports See HPI
Cardiac: Reports No Symptoms
Abdomen/GI: Reports See HPI
: Reports No Symptoms
Musculoskeletal: Reports No Symptoms
Skin: Reports No Symptoms
Neurological: Reports See HPI
Endocrine: Reports No Symptoms
Hematologic/Lymphatic: Reports No Symptoms
Psych: Reports No Symptoms
Physical Exam
Vital Signs
Vital Signs
Temp Pulse Resp BP Pulse Ox
98.5 F 78 18 121/59 97
08/28/23 14:06 08/28/23 18:01 08/28/23 18:01 08/28/23 16:32 08/28/23 18:01
Physical Exam
General: Well Developed, Well Nourished and No Apparent Distress
HEENT: NormoCephalic, Moist mucous membranes and Atraumatic
Respiratory: Clear
Cardiac: S1/S2 and Regular Rhythm; No Murmur or Rub
GI: Soft, Normal Bowel Sounds and Tender (abdominal hernia, right sided abdominal tenderness ); No Organomegaly
Rectal: Deferred by Provider
Musculoskeletal: No Clubbing, No Cyanosis and No Edema
Skin: No Rash
Neuro: Nonfocal/grossly intact
Laboratory Results
-
08/28/23 14:24
08/28/23 16:30
Laboratory Results
pH 7.36 (7.35-7.45) 08/28/23 17:15
pCO2 57 mmHg (32-35) H 08/28/23 17:15
pO2 43 mmHg (83-108) L* 08/28/23 17:15
HCO3 32.2 mmol/L (21-28) H 08/28/23 17:15
Total Bilirubin 0.4 mg/dl (0.2-1.3) 08/28/23 16:30
AST 26 U/L (14-36) 08/28/23 16:30
ALT 22 U/L (0-35) 08/28/23 16:30
Alkaline Phosphatase 84 U/L (38-126) 08/28/23 16:30
Data Reviewed
-
Lab Data: Labs Reviewed by me
Old Records: Reviewed
Impression/Plan
-
IMPRESSION:
PLAN:
# Possible mass versus subacute infarct in the right occipital lobe
# History of CVA
-More likely to be stroke given history
-Possibly slight right eyelid droop on examination, no focal neurological deficits
-CT scan shows possible mass versus subacute infarct in the right occipital lobe measuring 1.5 x 1.5 cm
-Check MRI brain with and without contrast
-Hold Eliquis
-Neurology consulted
# Right upper lobe/lingula and left opacities likely pneumonia
-COVID-negative
-Check influenza
-Check sputum culture
-Ceftriaxone/doxycycline
-Amiodarone toxicity unlikely
# GERD/gastritis
# History of hiatal hernia
-Zofran
-N.p.o. for now
-Start 40 mg Protonix twice daily
# Tender abdominal hernia
-Check CT abdomen pelvis with nausea/vomiting improved and patient able to take oral contrast
# Left shoulder pain secondary to recent Prolia injection/untreated rotator cuff tears
-continue PRN oxycodone
Paroxysmal atrial fibrillation
-Continue amiodarone
-Hold Eliquis
CAD with history of stent
-Continue aspirin, Plavix
Chronic HFrEF
-Continue Lasix
-Continue nebivolol
COPD
-No wheezing on examination
-Continue inhalers
Active smoker
-Nicotine patch
Essential hypertension
Orthostatic hypotension
History of childhood migraines
Hypercholesterolemia
-Continue statin, Zetia,
GERD
Hypercholesterolemia
Anxiety/depression
-Continue as needed Ativan
Full code
DVT prophylaxis�SCDs
NPO
[2023-08-28 22:24] VITALS: BP 119/39
[2023-08-28 23:54] VITALS: BP 169/84; BMI 37.0
[2023-08-29] MEDS: VIBRAMYCIN 260 MG IV ×3 (00:09→23:56)
[2023-08-29 03:38] VITALS: BP 153/75
[2023-08-29 06:00] VITALS: BMI 37.0
[2023-08-29] MEDS: TYLENOL 1000 MG PO ×2 (06:03→22:13)
[2023-08-29 06:39] LABS: % Basophils 0.1 % (0-2); % Immature Granulocytes 0.3 % (0-0.5); % Lymphocytes 18.9 % (20.5-51.1); % Monocytes 8.4 % (1.7-9.3); % Neutrophils 72.3 % (42.2-75.2); Absolute Lymphocytes 1.4 10^3/uL (1.2-3.4); Absolute Monocytes 0.6 10^3/uL (0.1-0.6); Absolute Neutrophils 5.5 10^3/uL (1.4-6.5); Hematocrit 36.2 % (37.0-47.0); Hemoglobin 11.9 g/dL (12.0-16.0); Mean Corp Hgb Conc. 32.9 g/dL (33.0-37.0); Mean Corpuscular Hgb 33.2 pg (27.0-31.0); Mean Corpuscular Volume 101.1 fL (81.0-99.0); Mean Platelet Volume 11.2 fL (7.4-10.4); Nucleated Red Blood Cells % 0 %; Platelet Count 238 10^3/uL (130-400); Red Blood Cell Count 3.58 10^6/uL (4.20-5.40); Red Cell Dist. Width 14.1 % (11.5-14.5); White Blood Cell Count 7.5 10^3/uL (4.8-10.8)
[2023-08-29 07:03] LABS: ALT (SGPT) 20 U/L (0-35); AST (SGOT) 23 U/L (14-36); Albumin 3.2 g/dl (3.5-5.0); Alkaline Phosphatase 77 U/L (38-126); Blood Urea Nitrogen 10 mg/dl (7-17); Calcium 8.2 mg/dl (8.4-10.2); Carbon Dioxide 32 mmol/L (22-30); Chloride 102 mmol/L (98-107); Estimated Creatinine Clearance 101 ml/min; Glucose 107 mg/dl (70-99); Potassium 4.4 mmol/L (3.5-5.1); Sodium 134 mmol/L (135-145); Total Bilirubin 0.3 mg/dl (0.2-1.3); Total Protein 5.7 g/dl (6.3-8.2); eGFR > 60.00
[2023-08-29] MEDS: OSCAL CAL 500 1500 MG PO ×2 (07:29→20:12)
[2023-08-29] MEDS: NICODERM TRANSDERMAL 7 MG TRANSDERM (07:30)
[2023-08-29] MEDS: PROTONIX 40 MG PO ×2 (07:30→20:12)
[2023-08-29] MEDS: LASIX 80 MG PO (07:30)
[2023-08-29 07:50] VITALS: BP 154/76
--- NOTE | 2023-08-29 08:16 | CON.NEURO4 ---
Addendum entered and electronically signed by Thierno Stokes MD 08/29/23 10:48:
Studies reviewed.
I have personally examined the patient. I reviewed and agree with the PURCHASE ANALYST's Note.
My addenda:
Awake, alert, interactive. No acute distress.
Speech intact.
Follows 2-step requests w/o difficulty. No tremor.
Extra-ocular movements grossly intact.
Facial movements full and symmetric. Hearing intact to normal conversational volume.
Normal UE movements bilaterally.
Neck: full ROM.
Chest: no dyspnea
Heart: no JVD
Ext: (-) Clubbing, (-) Cyanosis, (-) Edema
Wearing O2
3 beats clonus left ankle with crossed adductors bilaterally
IMPRESSIONS/RECOMMENDATIONS:
Abrupt onset of headache with prior episodes of ptosis in a patient with chronic tobacco use and abnormal CT of head suggestive of a right occipital mass
Check MRI of brain with and without contrast as planned
Likely patient will require hematology�oncology evaluation dependent on MRI of brain findings
Likely patient will require MRI of entire spine based on hyperreflexia in bilateral lower extremities greater on the left than right to ensure her absence of mass producing symptoms by means of myelopathy
Tobacco cessation counseling
No clear indication at this time patient would benefit from change in aspirin and clopidogrel dosing
No clear indication patient would benefit from change in apixaban use
Provide prochlorperazine in hopes of treating patient's headache
Check CT chest abdomen pelvis as per primary service
All questions answered.
Will continue to follow pending results.
Original Note:
Documented by User: Yasemin Leary NP 08/29/23 10:22
Consultation - Neurology 4
-
CONSULTING PHYSICIAN: Thierno Stokes MD
REFERRING PHYSICIAN: Hospitalists/Dr. Sheffield
DICTATED BY: ELÍAS London
DATE/TIME OF REQUEST: 08/28/23
DATE/TIME OF CONSULTATION: 08/29/23
Reason for Consultation: CVA vs mass
History of Present Illness:
This is a 72-year-old right-handed female who has presented to the hospital with report of headache, nausea, and vomiting. Patient reports two weeks of nausea, unusual belching, and a right umbilical abdominal mass. She was evaluated by her PCP for
these complaints on 08/24/23 and was scheduled for an outpatient CT abdomen which was never completed. Five days ago on 08/25/23, patient reports developing an intermittent posterior headache. The headache starts in her left neck, then radiates up to
either her right or left posterior head, then up across the top of her head. The headache area is tender to palpation. The headache was a 7/10 on , then progressed to a 10/10 on Monday, Monday, and Monday. On Monday (08/26/23) she noted
severe left shoulder discomfort and the inability to lift her left arm due to pain. She was evaluated in the ER on 08/26/23 for shoulder pain, and discharged home with a shoulder sling, Percocet, and instructions to follow-up with Ortho. The Percocet
helped with her shoulder discomfort but didn't resolve her headache. Applying an ice pack to the back of her head and sitting still in an upright position helped relieve her headache. She reports having nausea over the weekend and vomiting once. She
denies any photo/phonophobia. She reports feeling like her left eye is swollen and intermittently see double written words on the TV screen over the weekend. She also notes that starting on 08/26/23 her gait has been unsteady. She has had to hold onto
patel to maintain her balance, and she seems to be falling forward easily, this has not improved. She has felt fatigued and has been napping frequently. She denies any dizziness, speech/swallow difficulty, numbness, weakness, chest pain,
palpitations, and shortness of breath. She presented to the ER again yesterday (08/28/23) due to ongoing symptoms and also due to checking her pulse ox and noting that she was only sating in the 80's. CT head was obtained in the ER and demonstrates a
possible mass vs subacute infarct in the right occipital lobe. CT chest was obtained and is suggestive of a RUL pneumonia. Currently, she rates her headache a 5/10 and she denies any nausea. She reports having migraine headaches in her younger
decades associated with nausea, vomiting, photo/phonophobia. Her current headache does not feel similar to the migraines she used to get. She does endorse chronic low back pain that radiates down her RLE, she attributes this to lumbar synovial cysts
and DDD. At baseline, her gait is steady. In 2012 she was tested for myasthenia antibodies for an unclear reason, which were negative. She had an MRI brain completed in 2019 for frequent headaches and it demonstrated an old right lateral ventricle
lacunar infarct. She is taking Eliquis 5mg BID for Afib, Plavix 75mg daily, and aspirin 81mg MWF for cardiac purposes and she denies missing any doses.
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
orthostatic hypotension, hiatal hernia
Surgical History: Cardiac stent, cardiac ablation, cardioversion, appendectomy, cholecystectomy, R THR, R TKR, hysterectomy, Lumbar NURA
Family History: Reviewed and noncontributory.
Social History: Current smoker. Denies any alcohol or illicit drug use.
Allergies: See below.
Home Medications: See below.
Review of Symptoms:
Patient denies any fever, chest pain, shortness of breath, GI or symptoms.
�Per the HPI.�All systems are reviewed negative except above.
Physical Exam:
The patient is afebrile, abdomen is nondistended, breathing is unlabored, skin is warm and dry, no edema.
NIH Stroke Scale:
I performed the NIH stroke scale on the patient on 08/29/23 at 0830. The patient scored 0 points on the NIH stroke scale assessment, which were assigned as follows: See below.
Neurologic Examination:
The patient is awake, alert and oriented x 3. She is able to follow commands and answer questions appropriately. There is no aphasia or dysarthria. On cranial nerve assessment, pupils are 3 mm bilateral, round and reactive to light and
accommodation. Visual eastman are full. Extraocular movements are intact. Facial sensations are intact and bilaterally symmetrical, there is no facial asymmetry. Hearing is intact bilaterally to normal conversation volume. Tongue palate and uvula
are midline. Sternocleidomastoid strengths are full bilaterally. Motor strengths are 5/5 RUE, 4/5 LUE limitation due to pain, and 5/5 bilateral lower extremities on medical research [place] scale. There is no drift or involuntary movement noted.
Deep tendon reflexes are 2+ bilateral upper and 3+ lower extremities (crossed adductors), L Achilles with two beats of clonus. Babinski is absent bilaterally. Sensations of touch, temperature and vibration are intact and bilaterally symmetrical.
There was no extinction noted on double simultaneous stimulation. Coordination is intact by finger to nose bilaterally.
Lab Results: See below.
Neuro Imaging:
1. CT Head 08/28/23: Possible mass versus subacute infarct in the right occipital lobe. This would better be evaluated by MRI examination pre- and post-IV contrast. New from previous exam.
2. MRI brain 01/01/20: 2 mm focus of CSF signal intensity lateral to the body of the right lateral ventricle, suspicious for a small old lacunar infarct. Mild T2 and FLAIR white matter hyperintensities, commonly seen with aging and usually attributed
to small vessel ischemic disease. These hyperintensities have not been shown to correlate with a focal neurologic deficit. Not mentioned above, there is no evidence to suggest orbital mass.
3. MRI lumbar spine 03/11/16: Tiny 3 mm facet joint cyst on the RIGHT at L1-2. No nerve root impingement. No abnormal enhancement. Spur disk extends into the RIGHT exit foramen at L4-5 and minimally impinges upon the exiting RIGHT L4 nerve root.
The significant facet arthropathy at L4-5 causes lateral recess and central canal stenosis which may cause minimal impingement upon the descending L5 nerve roots. Minimal residual 2.5 mm RIGHT facet joint cyst at L4-5. No definite LEFT facet joint
cyst. No abnormal enhancement.
Differentials for the patient's presentation include:
1. Concern for right occipital lobe mass versus subacute infarct as demonstrated on CT head imaging.
2. Some concern for spine metabases causing gait dysfunction.
3. Old right lateral ventricle lacunar infarct.
4. Intractable headache
Patient has the following risk factors for their symptoms: Hx stroke, Afib, HTN, HLD, age
IV Tenecteplase/IAT candidacy: Not a candidate due to outside of time window.
Recommendations:
-MRI brain w/ and w/o contrast ordered/pending.
-Provide prochlorperazine 10mg x1 now for headache.
-Continue home Eliquis/Plavix/Aspirin regimen.
-Eventual MRI spine imaging to evaluate gait dysfunction.
-Goal normotension.
-LDL goal <70. LDL is 72. Okay to continue home rosuvastatin 20mg daily and zetia 10mg daily.
-Goal normoglycemia, hbA1c is pending.
-NIHSS and neurological checks per unit guidelines.
-Provide patient with a stroke education packet.
-PT/OT/ST evaluations.
-Will follow pending results.
Discussed patient care with: Dr. Stokes, the patient
Vital Signs and Labs
-
Vital Signs and Labs:
Vital Signs
Temp Pulse Resp BP Pulse Ox
98.3 F 66 18 154/76 97
08/29/23 07:50 08/29/23 07:50 08/29/23 07:50 08/29/23 07:50 08/29/23 07:50
Lab Results
08/29/23 06:22
08/29/23 06:22
Sodium 134 mmol/L (135-145) L 08/29/23 06:22
Potassium 4.4 mmol/L (3.5-5.1) 08/29/23 06:22
BUN 10 mg/dl (7-17) 08/29/23 06:22
Glucose 107 mg/dl (70-99) H 08/29/23 06:22
Calcium 8.2 mg/dl (8.4-10.2) L 08/29/23 06:22
Medications
-
Active Medications
Generic Name Dose Route Start Last Admin
Trade Name Freq PRN Reason Stop Dose Admin
Acetaminophen 1,000 mg 08/28/23 23:06 08/29/23 06:03
Acetaminophen 500 Mg Tablet PO 09/25/23 23:05 1,000 mg
BIDPRN PRN Administration
mild pain
Amiodarone HCl 200 mg 08/29/23 22:00
Amiodarone 200 Mg Tablet PO 09/26/23 21:59
HS LYRIC
Ascorbic Acid 1,500 mg 08/29/23 22:00
Ascorbic Acid 500 Mg Tablet PO 09/26/23 21:59
HS LYRIC
Aspirin 81 mg 08/30/23 22:00
Aspirin 81 Mg (Enteric Coated) Tablet PO 09/27/23 21:59
MOWEFR@2200 LYRIC
Calcium Carbonate 1,500 mg 08/29/23 08:00 08/29/23 07:29
Calcium Carbonate 500 Mg Tablet PO 09/26/23 07:59 1,500 mg
BID LYRIC Administration
Ceftriaxone Sodium 1,000 mg 08/29/23 22:00
Ceftriaxone 1000 Mg / 10 Ml Vial IV
Q24H LYRIC
Cholecalciferol 50 mcg 08/29/23 22:00
Cholecalciferol (Vitamin D3) 50 Mcg Tablet (2,000 Units) PO 09/26/23 21:59
HS LYRIC
Clopidogrel Bisulfate 75 mg 08/29/23 22:00
Clopidogrel 75 Mg Tablet PO 09/26/23 21:59
HS LYRIC
Ezetimibe 10 mg 08/29/23 22:00
Ezetimibe (Zetia) 10 Mg Tablet PO 09/26/23 21:59
HS LYRIC
Furosemide 80 mg 08/29/23 08:00 08/29/23 07:30
Furosemide 80 Mg Tablet PO 09/26/23 07:59 80 mg
DAILY LYRIC Administration
Doxycycline Hyclate 100 mg/ 260 mls @ 260 mls/hr 08/29/23 00:00 08/29/23 00:09
Sodium Chloride IV 260 mls
Q12H LYRIC Administration
Promethazine HCl 25 mg/ Sodium 51 mls @ 102 mls/hr 08/28/23 23:31
Chloride IV 09/25/23 23:30
Q6HPRN PRN
NAUSEA/VOMITING
Ipratropium [place] 0.5 mg 08/28/23 23:06
Ipratropium Nebs 0.5 Mg/2.5 Ml Ampul INH
R Q8HPRN PRN
sob
Protocol
Levalbuterol 1 puff 08/28/23 23:06
Levalbuterol 45 Mcg Inhaler INH
R Q4HPRN PRN
sob
Protocol
Nicotine 7 mg 08/29/23 08:00 08/29/23 07:30
Nicotine 7 Mg Patch TRANSDERM 09/26/23 07:59 7 mg
DAILY LYRIC Administration
Oxycodone HCl 5 mg 08/28/23 23:06
Oxycodone 5 Mg Regular Release Tablet PO 09/11/23 23:05
Q6HPRN PRN
severe pain
Pantoprazole Sodium 40 mg 08/29/23 08:00 08/29/23 07:30
Pantoprazole 40 Mg Delayed Release Tablet PO 09/26/23 07:59 40 mg
BID LYRIC Administration
Rosuvastatin Calcium 20 mg 08/29/23 22:00
Rosuvastatin (Crestor) 20 Mg Tablet PO 09/26/23 21:59
HS LYRIC
Sodium Chloride 0 flush 08/28/23 23:00
Sodium Chloride 0.9% (Flush) Syringe IV 09/25/23 22:59
PER PROTOCOL LYRIC
Sterile Water 10 ml 08/29/23 22:00
Sterile Water For Injection 10 Ml Vial IV 09/26/23 21:59
Q24H LYRIC
Home Medications
�Medication �Instructions �Recorded
rosuvastatin 20 mg tablet 20 mg PO HS High cholesterol 10/01/15
clopidogrel 75 mg tablet 75 mg PO HS Blood clot 10/01/20
prevention/tx ##0
apixaban 5 mg tablet (Eliquis) 5 mg PO BID Blood clot 10/15/20
prevention/tx ##0
amiodarone 200 mg tablet 200 mg PO HS 04/18/22
cyanocobalamin (B12)-cobamamide 1 samia sublingual HS 04/18/22
5,000 mcg-100 mcg sublingual
lozenge (B12)
ezetimibe 10 mg tablet (Zetia) 10 mg PO HS 04/18/22
furosemide 80 mg tablet 80 mg PO DAILY 04/18/22
acetaminophen 500 mg tablet 1,000 mg PO BIDPRN PRN mild pain 08/28/23
(Tylenol Extra Strength)
ascorbic acid (vitamin C) 500 mg 1,500 mg PO HS 08/28/23
tablet (Vitamin C)
aspirin 81 mg tablet,delayed 81 mg PO MOWEFR@2200 08/28/23
release
calcium carbonate 1,500 mg PO BID 08/28/23
cholecalciferol (vitamin D3) 50 50 mcg PO HS 08/28/23
mcg (2,000 unit) tablet
famotidine 20 mg tablet 20 mg PO [id number] PRN indigestion 08/28/23
ipratropium bromide 0.02 % 0.5 mg inhalation R Q8HPRN PRN sob 08/28/23
solution for inhalation
levalbuterol tartrate 45 1 puff inhalation R Q4HPRN PRN sob 08/28/23
mcg/actuation aerosol inhaler
ondansetron 4 mg disintegrating 4 mg PO [id number] PRN nausea/vomiting 08/28/23
tablet
oxycodone 5 mg tablet 5 mg PO Q6HPRN PRN severe pain 08/28/23
Allergies
-
Allergies
Allergy/AdvReac Type Severity Reaction Status Date / Time
alendronate sodium Allergy dizzy, Verified 08/25/23 14:50
[From Fosamax] tight chest
duloxetine HCl Allergy heart Verified 08/25/23 14:50
[From Cymbalta] palpitations,vomiting
hylan G-F 20 [From Synvisc] Allergy Swelling Verified 08/28/23 23:05
Iodinated Contrast Media Allergy Hives Verified 08/25/23 14:50
iodine Allergy Hives Verified 08/28/23 23:05
latex [Latex] Allergy Anaphylaxis Verified 08/25/23 14:50
niacin [Niacin] Allergy hives and Verified 08/25/23 14:50
burning
skin
oxycodone [Oxycodone] Allergy depressed, Verified 08/25/23 14:50
no appetite
simvastatin [From Zocor] Allergy myalgias, Verified 08/28/23 23:05
swelling
valsartan [From Diovan] Allergy DIZZINESS Verified 08/25/23 14:50
NIH Stroke Score
Subsequent NIH Scale
Date of Subsequent NIH Scale: 08/29/23
Time of Subsequent NIH Scale: 08:30
NIH Stroke Score
Level of Consciousness: 0 - Alert
LOC Questions: 0-Answers both correctly
LOC Commands: 0-Performs both correctly
Best Horizontal Gaze: 0-Normal
Visual [place]: 0=Normal, no visual loss
Facial Palsy: 0=Normal, symmetrical
Motor - Right Arm: 0=No drift 10 seconds
Motor - Left Arm: 0=No drift 10 seconds (Rom limited)
Motor - Right Le-No drift 5 seconds
Motor - Left Le-No drift 5 seconds
Limb Ataxia: 0-Absent
Sensation: 0-Normal
Best Language: 0-No aphasia
Dysarthria: 0-Normal
Extinction and Inattention: 0-No abnormality
Total Score:: 0

Documented by User: Thierno Stokes MD 08/29/23 10:39
Consultation - Neurology 4
-
CONSULTING PHYSICIAN: Thierno Stokes MD
REFERRING PHYSICIAN: Hospitalists/Dr. Sheffield
DICTATED BY: ELÍAS [place]
DATE/TIME OF REQUEST: 08/28/23
DATE/TIME OF CONSULTATION: 08/29/23
Reason for Consultation: CVA vs mass
History of Present Illness:
This is a 72-year-old right-handed female who has presented to the hospital with report of headache, nausea, and vomiting. Patient reports two weeks of nausea, unusual belching, and a right umbilical abdominal mass. She was evaluated by her PCP for
these complaints on 08/24/23 and was scheduled for an outpatient CT abdomen which was never completed. Five days ago on 08/25/23, patient reports developing an intermittent posterior headache. The headache starts in her left neck, then radiates up to
either her right or left posterior head, then up across the top of her head. The headache area is tender to palpation. The headache was a 7/10 on , then progressed to a 10/10 on Monday, Monday, and Monday. On Monday (08/26/23) she noted
severe left shoulder discomfort and the inability to lift her left arm due to pain. She was evaluated in the ER on 08/26/23 for shoulder pain, and discharged home with a shoulder sling, Percocet, and instructions to follow-up with Ortho. The Percocet
helped with her shoulder discomfort but didn't resolve her headache. Applying an ice pack to the back of her head and sitting still in an upright position helped relieve her headache. She reports having nausea over the weekend and vomiting once. She
denies any photo/phonophobia. She reports feeling like her left eye is swollen and intermittently see double written words on the TV screen over the weekend. She also notes that starting on 08/26/23 her gait has been unsteady. She has had to hold onto
patel to maintain her balance, and she seems to be falling forward easily, this has not improved. She has felt fatigued and has been napping frequently. She denies any dizziness, speech/swallow difficulty, numbness, weakness, chest pain,
palpitations, and shortness of breath. She presented to the ER again yesterday (08/28/23) due to ongoing symptoms and also due to checking her pulse ox and noting that she was only sating in the 80[place]. CT head was obtained in the ER and demonstrates a
possible mass vs subacute infarct in the right occipital lobe. CT chest was obtained and is suggestive of a RUL pneumonia. Currently, she rates her headache a 5/10 and she denies any nausea. She reports having migraine headaches in her younger
decades associated with nausea, vomiting, photo/phonophobia. Her current headache does not feel similar to the migraines she used to get. She does endorse chronic low back pain that radiates down her RLE, she attributes this to lumbar synovial cysts
and DDD. At baseline, her gait is steady. In 2012 she was tested for myasthenia antibodies for an unclear reason, which were negative. She had an MRI brain completed in 2019 for frequent headaches and it demonstrated an old right lateral ventricle
lacunar infarct. She is taking Eliquis 5mg BID for Afib, Plavix 75mg daily, and aspirin 81mg MWF for cardiac purposes and she denies missing any doses.
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
orthostatic hypotension, hiatal hernia
Surgical History: Cardiac stent, cardiac ablation, cardioversion, appendectomy, cholecystectomy, R THR, R TKR, hysterectomy, Lumbar NURA
Family History: Reviewed and noncontributory.
Social History: Current smoker. Denies any alcohol or illicit drug use.
Allergies: See below.
Home Medications: See below.
Review of Symptoms:
Patient denies any fever, chest pain, shortness of breath, GI or symptoms.
�Per the HPI.�All systems are reviewed negative except above.
Physical Exam:
The patient is afebrile, abdomen is nondistended, breathing is unlabored, skin is warm and dry, no edema.
NIH Stroke Scale:
I performed the NIH stroke scale on the patient on 08/29/23 at 0830. The patient scored 0 points on the NIH stroke scale assessment, which were assigned as follows: See below.
Neurologic Examination:
The patient is awake, alert and oriented x 3. She is able to follow commands and answer questions appropriately. There is no aphasia or dysarthria. On cranial nerve assessment, pupils are 3 mm bilateral, round and reactive to light and
accommodation. Visual eastman are full. Extraocular movements are intact. Facial sensations are intact and bilaterally symmetrical, there is no facial asymmetry. Hearing is intact bilaterally to normal conversation volume. Tongue palate and uvula
are midline. Sternocleidomastoid strengths are full bilaterally. Motor strengths are 5/5 RUE, 4/5 LUE limitation due to pain, and 5/5 bilateral lower extremities on medical research [place] scale. There is no drift or involuntary movement noted.
Deep tendon reflexes are 2+ bilateral upper and 3+ lower extremities (crossed adductors), L Achilles with two beats of clonus. Babinski is absent bilaterally. Sensations of touch, temperature and vibration are intact and bilaterally symmetrical.
There was no extinction noted on double simultaneous stimulation. Coordination is intact by finger to nose bilaterally.
Lab Results: See below.
Neuro Imaging:
1. CT Head 08/28/23: Possible mass versus subacute infarct in the right occipital lobe. This would better be evaluated by MRI examination pre- and post-IV contrast. New from previous exam.
2. MRI brain 01/01/20: 2 mm focus of CSF signal intensity lateral to the body of the right lateral ventricle, suspicious for a small old lacunar infarct. Mild T2 and FLAIR white matter hyperintensities, commonly seen with aging and usually attributed
to small vessel ischemic disease. These hyperintensities have not been shown to correlate with a focal neurologic deficit. Not mentioned above, there is no evidence to suggest orbital mass.
3. MRI lumbar spine 03/11/16: Tiny 3 mm facet joint cyst on the RIGHT at L1-2. No nerve root impingement. No abnormal enhancement. Spur disk extends into the RIGHT exit foramen at L4-5 and minimally impinges upon the exiting RIGHT L4 nerve root.
The significant facet arthropathy at L4-5 causes lateral recess and central canal stenosis which may cause minimal impingement upon the descending L5 nerve roots. Minimal residual 2.5 mm RIGHT facet joint cyst at L4-5. No definite LEFT facet joint
cyst. No abnormal enhancement.
Differentials for the patient's presentation include:
1. Concern for right occipital lobe mass versus subacute infarct as demonstrated on CT head imaging.
2. Some concern for spine metabases causing gait dysfunction.
3. Old right lateral ventricle lacunar infarct.
4. Intractable headache
Patient has the following risk factors for their symptoms: Hx stroke, Afib, HTN, HLD, age
IV Tenecteplase/IAT candidacy: Not a candidate due to outside of time window.
Recommendations:
-MRI brain w/ and w/o contrast ordered/pending.
-Provide prochlorperazine 10mg x1 now for headache.
-Continue home Eliquis/Plavix/Aspirin regimen.
-Eventual MRI spine imaging to evaluate gait dysfunction.
-Goal normotension.
-LDL goal <70. LDL is 72. Okay to continue home rosuvastatin 20mg daily and Ezetimibe 10mg daily.
-Goal normoglycemia, hbA1c is pending.
-NIHSS and neurological checks per unit guidelines.
-Provide patient with a stroke education packet.
-PT/OT/ST evaluations.
-Will follow pending results.
Discussed patient care with: Dr. Stokes, the patient
NIH Stroke Score
NIH Stroke Score
Total Score:: 0
[2023-08-29] MEDS: COMPAZINE 10 MG PO (09:08)
--- NOTE | 2023-08-29 09:45 | W.PN.HOSP.TC ---
Today's Communication/Plan
-
Await MRI of the brain. Continue with aspirin and Plavix. Hold Eliquis.
Requested CT of the abdomen pelvis to evaluate the palpable mass
Start on a diet after the CT abdomen and pelvis.
Assessment / Plan
Assessment / Plan
# Possible mass versus subacute infarct in the right occipital lobe
# History of CVA
-Patient presents with new headache. Nonfocal neurologically on gross exam. Await neurology input.
-Check MRI brain with and without contrast
-Hold Eliquis
# Right upper lobe/lingula and left opacities likely pneumonia
-Patient presents with GI symptoms including episodes of emesis. Unclear position of the patient during emesis. Right upper lobe groundglass opacity noted on Chest CT ,aspiration is a possibility depending on the position she was in during emesis.
Could also be a community-acquired pneumonia.
-COVID-negative
-Neg influenza
-Check sputum culture
-CW Ceftriaxone/doxycycline
- Would need follow up after abx
# Palpable abdominal mass with N/V ;some abdominal pain prior to presentation
-Check CT abdomen pelvis
# GERD/gastritis
# History of hiatal hernia
-cw Protonix twice daily
# Left shoulder pain secondary to recent Prolia injection/untreated rotator cuff tears
-continue PRN oxycodone
Paroxysmal atrial fibrillation
-Continue amiodarone
-Hold Eliquis
CAD with history of stent
-Continue aspirin, Plavix
Chronic HFrEF
-Continue Lasix
-Continue nebivolol
COPD
-No wheezing on examination
-Continue inhalers
Active smoker
-Nicotine patch
Essential hypertension
Orthostatic hypotension
History of childhood migraines
Hypercholesterolemia
-Continue statin, Zetia,
GERD
Hypercholesterolemia
Anxiety/depression
-Continue as needed Ativan
Full code
DVT prophylaxis�SCDs
NPO
DW neurology
DW RN
Needs prep for IV contrast allergy.
Anticipated Discharge: > 48 hours
Subjective/Interval History
-
Date of Service: August 29, 2023
Currently being n.p.o. she states she is not having any nausea or abdominal pain.
Abdominal pain noted within the last week and when she was touching her belly she felt a mass in the mid right abdomen. Denies prior history of cancers. Colonoscopy in 2017.
Headache ongoing since last week. Today it is felt on the left side of the posterior head. No vision or speech disturbances. No limb weakness. She was not steady on her feet lately.
Denies prior history of stroke. She is on Eliquis for the last 3 years. She is on aspirin and Plavix combination for CAD and coronary stent. 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
Objective Data
-
Labs:
Laboratory Results
08/29/23
06:22
WBC 7.5
Hgb 11.9 L
Hct 36.2 L
Plt Count 238
Sodium 134 L
Potassium 4.4
Chloride 102
Carbon Dioxide 32 H
BUN 10
Creatinine 0.5 L
Glucose 107 H
Calcium 8.2 L
Total Bilirubin 0.3
AST 23
ALT 20
Alkaline Phosphatase 77
Vital Signs:
Vital Signs
Temp Pulse Resp BP Pulse Ox
98.3 F 66 18 154/76 97
08/29/23 07:50 08/29/23 07:50 08/29/23 07:50 08/29/23 07:50 08/29/23 07:50
I&O
08/28/23 08/29/23 08/30/23
06:59 06:59 06:59
Intake Total 960 / 960
Output Total 500 / 500
Balance 460 / 460
Review of Systems
-
Respiratory: Reports Cough (new but not much productive); Denies Trouble Breathing
Cardiac: Denies Chest Pain
Musculoskeletal: Reports Other (Recurrent issues with the left rotator cuff. She had a prior surgical treatments on that.)
Neuro: Denies Dizzy
Physical Exam
-
General: No Apparent Distress
HEENT: Moist Mucous Membranes
Respiratory: Clear to Auscultation; Negative Wheezes or Crackles
Cardiac: Regular Rhythm and S1/S2
GI: Soft, Nontender, Nondistended, Normal Bowel Sounds and Other (mass in right mid abdomen area)
Neuro: AO x 3 and No Motor Deficits; Negative Tremors, Slurred Speech or Facial Droop
Psych: Calm; Negative Confused
Data Reviewed
-
CT Scan: Report Reviewed by me (ct head;ct chest)
Labs: Labs Reviewed by me
[2023-08-29] MEDS: OMNIPAQUE 50 ML PO (10:22)
[2023-08-29] MEDS: SOLU-CORTEF 200 MG IV (10:22)
--- NOTE | 2023-08-29 11:20 | PTCARENOTE ---
pt aaox3. states no pain. head ache feels better no nausea. nihss done with last shift as documented. left arm unable to test due to shoulder injury. reviewed pt condition and leon of care including mri and ct scan prep. spoke to pt about
smoking cessation. she expresses no desire to stop smoking.
[2023-08-29] MEDS: BENADRYL 50 MG IV (11:22)
[2023-08-29 11:34] VITALS: BP 153/69
[2023-08-29] MEDS: ATIVAN 1 MG PO (12:04)
[2023-08-29 12:08] VITALS: BMI 37.0
[2023-08-29 13:35] LABS: Glycohemoglobin (HgbA1c) 5.5 % (4.0-5.6)
[2023-08-29 15:01] VITALS: BMI 37.0
[2023-08-29 15:54] VITALS: BP 154/70
--- NOTE | 2023-08-29 16:11 | CM ---
CM attempted to see patient multiple times, patient off floor. CM returned to patients room, patient asleep. CM called and spoke with patients spouse, initial assessment completed. Spouse reports patient lives in a single story home with two steps
to enter. Patient has a walker if going into the community, otherwise ambulates independently in the house. Spouse reports patient has had VN after hip, shoulder, and knee surgery, unsure with who. Spouse reports patient has been to [facility], [place]
after knee surgery. Spouse confirms PCP Dr. Sterling, pharmacy [facility] in [facility]. CM will continue to follow for discharge planing needs.
Plan; home no needs vs VN, watch for PT/OT evals.
[2023-08-29 19:47] VITALS: BP 133/59
--- NOTE | 2023-08-29 20:27 | CON.NS ---
Consultation
-
Date/Time Consultation Performed: 20:30; 08/29/2023
Performing Provider: Catalino
Chief Complaint
History of Present Illness
This is a neurosurgical consultation on a 72-year-old female who presented with symptoms of headache, nausea and vomiting, and a cough. She has a past medical history of atrial fibrillation on Eliquis, coronary artery disease with stents on aspirin
and Plavix. She reported the headache started approximately 5 days prior. She denies any changes in vision. The daughter also noticed that the right eyelid was drooping. The patient has had a stroke 2 years prior, and it was reported that she
had a similar headache at that time. She smokes half pack cigarettes a day. Patient had a noncontrast CT scan which demonstrated an area of edema within the right occipital lobe suspicious for possible infarction versus mass. Patient subsequently
had an MRI scan which demonstrated a cystic lesion in the right occipital lobe adjacent to the occipital horn of the lateral ventricle. Eliquis has been held. Neurology was consulted.
Patient seen and examined. She reports that she has been having acute onset of headaches which are different from her normal migraine headaches over the last week or so. This has been associated with nausea vomiting. She also admits to vision
changes. She also reports that she has been having left shoulder spasms and pain and weakness, as well as contractions of the left hand.
Review of Systems
-
10 point review of systems including constitutional, ENT, cardiovascular, respiratory, GI, , endocrinologic, neurologic, psychiatric, musculoskeletal, was performed and was negative except for stated in HPI.
Medication and Allergies
Home Medications
Home Medications
�Medication �Instructions �Recorded
rosuvastatin 20 mg tablet 20 mg PO HS High cholesterol 10/01/15
clopidogrel 75 mg tablet 75 mg PO HS Blood clot 10/01/20
prevention/tx ##0
apixaban 5 mg tablet (Eliquis) 5 mg PO BID Blood clot 10/15/20
prevention/tx ##0
amiodarone 200 mg tablet 200 mg PO HS Heart 04/18/22
Disease/Condition
cyanocobalamin (B12)-cobamamide 1 samia sublingual HS Supplement 04/18/22
5,000 mcg-100 mcg sublingual
lozenge (B12)
ezetimibe 10 mg tablet (Zetia) 10 mg PO HS Heart Failure 04/18/22
furosemide 80 mg tablet 80 mg PO DAILY 04/18/22
acetaminophen 500 mg tablet 1,000 mg PO BIDPRN PRN mild pain 08/28/23
(Tylenol Extra Strength)
ascorbic acid (vitamin C) 500 mg 1,500 mg PO HS Supplement 08/28/23
tablet (Vitamin C)
aspirin 81 mg tablet,delayed 81 mg PO MOWEFR@2200 Blood Clot 08/28/23
release Prevention/Tx
calcium carbonate 1,500 mg PO BID Supplement 08/28/23
cholecalciferol (vitamin D3) 50 50 mcg PO HS Supplement 08/28/23
mcg (2,000 unit) tablet
famotidine 20 mg tablet 20 mg PO [id number] PRN indigestion 08/28/23
ipratropium bromide 0.02 % 0.5 mg inhalation R Q8HPRN PRN sob 08/28/23
solution for inhalation
levalbuterol tartrate 45 1 puff inhalation R Q4HPRN PRN sob 08/28/23
mcg/actuation aerosol inhaler
ondansetron 4 mg disintegrating 4 mg PO [id number] PRN nausea/vomiting 08/28/23
tablet
oxycodone 5 mg tablet 5 mg PO Q6HPRN PRN severe pain 08/28/23
Allergies
Allergies
Allergy/AdvReac Type Severity Reaction Status Date / Time
alendronate sodium Allergy dizzy, Verified 08/25/23 14:50
[From Fosamax] tight chest
duloxetine HCl Allergy heart Verified 08/25/23 14:50
[From Cymbalta] palpitations,vomiting
hylan G-F 20 [From Synvisc] Allergy Swelling Verified 08/28/23 23:05
Iodinated Contrast Media Allergy Hives Verified 08/25/23 14:50
iodine Allergy Hives Verified 08/28/23 23:05
latex [Latex] Allergy Anaphylaxis Verified 08/25/23 14:50
niacin [Niacin] Allergy hives and Verified 08/25/23 14:50
burning
skin
oxycodone [Oxycodone] Allergy depressed, Verified 08/25/23 14:50
no appetite
simvastatin [From Zocor] Allergy myalgias, Verified 08/28/23 23:05
swelling
valsartan [From Diovan] Allergy DIZZINESS Verified 08/25/23 14:50
Physical Exam
-
Exam:
Awake, alert, no apparent distress.
Head is normocephalic atraumatic
Neck is supple
Cardiac rhythm irregular
Abdomen is soft
Extremities are warm
Cranial nerves II through XII are grossly intact.
Left visual field cut.
Motor: 5/5 strength in right upper, right lower extremity. 5/5 strength left lower extremity. 3/5 strength diffusely in left upper extremity secondary to pain. No pronator drift.
Gait not tested.
Sensation to light touch intact in bilateral upper and lower extremities.
CT of the chest demonstrated groundglass densities, concerning for possible development of pneumonia. No neoplasm was seen. CT of the abdomen/pelvis negative for neoplasm.
MRI of the brain with and without contrast was reviewed. There is a cystic lesion within the right occipital lobe with enhancement of the cyst wall suspicious for underlying lesion/neoplasm. There is moderate amount of FLAIR signal hyperintensity
surrounding this to suggest vasogenic edema.
Problems
-
Problem Status Onset Code
Pneumonia J18.9
Hypoxia R09.02
Assessment / Plan
-
This is a 72-year-old female who presented with headaches, and cough. Patient also had symptoms of nausea vomiting. MRI of the brain does demonstrate right cystic occipital lesion. Patient also has right upper lobe opacity, could be pneumonia,
but is COVID-negative, negative for influenza. She is currently being treated with ceftriaxone and doxycycline. Positive smoking history.
MRI of the brain demonstrates new cystic, enhancing lesion within the right occipital lobe with moderate amount of vasogenic edema. 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
Extensive discussion was held at the bedside with the patient, and her daughter, August, via telephone. I explained to imaging studies and I am recommending excisional biopsy of right occipital cystic lesion. They expressed understanding of this,
and the patient is agreeable to surgery. Unfortunately, craniotomy with neuronavigation cannot be performed at [facility]. Therefore, the patient would need to be transferred to [facility] for definitive operative intervention.
She reports that she has an extensive cardiac history, and sees Dr. Hansen for management of her Eliquis, aspirin, Plavix. In the past, she reports that when the aspirin and Plavix has been discontinued, she has had restenosis of her cardiac stents?
Patient's Eliquis is being held. She remains on aspirin and Plavix.
Would recommend cardiac consultation for management of discontinuation of Eliquis, aspirin, Plavix. Patient would need to have her dual antiplatelet therapy, and therapeutic anticoagulation held perioperatively, if possible, for approximately 7
days. Certainly, if needed, can discuss bridge with Lovenox, but would like to have patient off of the dual antiplatelet therapy given long half-life.
Additionally, unclear as to etiology of left upper extremity pain. This cannot be directly attributed to the patient's right occipital lesion. Would recommend any relevant workup and evaluation for this.
Once patient has been medically and cardiac cleared for surgery with appropriate perioperative restratification, and perioperative anticoagulant/antiplatelet treatment management, will expedite transfer to [facility] for surgery. Patient
and daughter understand plan, and are in agreement.
[2023-08-29] MEDS: VITAMIN D3 (cholecalciferol) 50 MCG PO (22:14)
[2023-08-29] MEDS: VITAMIN C 1500 MG PO (22:14)
[2023-08-29] MEDS: CRESTOR 20 MG PO (22:15)
[2023-08-29] MEDS: PLAVIX 75 MG PO (22:15)
[2023-08-29] MEDS: ZETIA 10 MG PO (22:15)
[2023-08-29] MEDS: PACERONE 200 MG PO (22:20)
[2023-08-29] MEDS: ROCEPHIN 1000 MG IV (22:21)
[2023-08-29] MEDS: STERILE WATER FOR INJECTION 10 ML IV (22:22)
[2023-08-29 23:57] VITALS: BP 118/63
[2023-08-30] VITALS (8 sets, daily range): BP systolic 113–162; BP diastolic 48–107; PULSE 76–77; O2SAT 95–97; BMI 36.4
[2023-08-30] MEDS: TYLENOL 1000 MG PO (06:22)
--- NOTE | 2023-08-30 07:46 | W.PN.NEURO.1 ---
Today's Communication / Plan
-
-Pain control for the left shoulder, X ray reviewed
-Cardiology consult for antiplatelet and weighing risks/benefits of antiplatelet before neurosurgery
-Neurologic checks
-Not recommending steroids and seizure prevention medication at this time
-Tylenol for headache, probably in part migraine with a history of severe migraines before hysterectomy
Will follow peripherally call with questions and concerns
Neuro Assessment/Plan
Assessment
72 year old woman presenting with headche, nausea vomiting, left shoulder pain and left arm weakness
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
Subjective/Objective
Subjective Data
Date of Service: August 30, 2023
No acute events, significant left shoulder pain and limitation in movement due to this
Objective Data
Vital Signs
Temp Pulse Resp BP Pulse Ox
97.9 F 60 18 113/64 95
08/30/23 03:53 08/30/23 03:53 08/30/23 03:53 08/30/23 03:53 08/30/23 03:53
Lab Results
08/29/23 06:22
08/29/23 06:22
Sodium 134 mmol/L (135-145) L 08/29/23 06:22
Potassium 4.4 mmol/L (3.5-5.1) 08/29/23 06:22
BUN 10 mg/dl (7-17) 08/29/23 06:22
Glucose 107 mg/dl (70-99) H 08/29/23 06:22
Calcium 8.2 mg/dl (8.4-10.2) L 08/29/23 06:22
Patient Allergies
alendronate sodium [From Fosamax] Allergy (Verified 08/25/23 14:50)
dizzy, tight chest
duloxetine HCl [From Cymbalta] Allergy (Verified 08/25/23 14:50)
heart palpitations,vomiting
hylan G-F 20 [From Synvisc] Allergy (Verified 08/28/23 23:05)
Swelling
Iodinated Contrast Media Allergy (Verified 08/25/23 14:50)
Hives
iodine Allergy (Verified 08/28/23 23:05)
Hives
latex [Latex] Allergy (Verified 08/25/23 14:50)
Anaphylaxis
niacin [Niacin] Allergy (Verified 08/25/23 14:50)
hives and burning skin
oxycodone [Oxycodone] Allergy (Verified 08/25/23 14:50)
depressed, no appetite
simvastatin [From Zocor] Allergy (Verified 08/28/23 23:05)
myalgias, swelling
valsartan [From Diovan] Allergy (Verified 08/25/23 14:50)
DIZZINESS
Review of Systems
-
History Source: Patient
All other systems: Reviewed and negative
Constitutional: No Symptoms
EENT: No Symptoms Reported
Respiratory: No Symptoms
Cardiac: No Symptoms
Abdomen/GI: No Symptoms
Genitourinary: No Symptoms
Musculoskeletal: Muscle Pain and Muscle Stiffness
Skin: No Symptoms
Neuro: Headache
Endocrine: No Symptoms
Hematologic / Lymphatic: No Symptoms
Allergy / Immunology: No Symptoms
Physical Exam
-
General: Comfortable
Eyes: No Ptosis
HEENT: Normocephalic
Neck: No Bruits Bilaterally
Respiratory: Clear to Auscultation
Cardiac: Regular Rhythm
GI: Normal Bowel Sounds
Skin: Unremarkable
Extremities: No Edema
Psych: Unremarkable
Extended Neurological Exam
Mood & Affect: Mood Unremarkable and Affect Unremarkable
Attention Span & Concentration: Awake and Interactive
Memory: Unremarkable
Tremor: Hand Tremor Absent
Involuntary Movement: None
Speech: Quality Unremarkable and Quantity Unremarkable; Negative Receptive Aphasia, Mildly Reduced Output or Dysarthric
Cranial Nerve II: Left Eye: Pupillary Reactivity Unremarkable, Pupillary Size Unremarkable and Visual Eastman Intact
Cranial Nerve II: Right Eye: Pupillary Reactivity Unremarkable, Pupillary Size Unremarkable and Visual Eastman Intact
Cranial Nerves III, IV, : Extraocular Movement: Extraocular Movement Full in all Directions
Cranial Nerve VII: Facial Symmetry: Normal Facial Symmetry
Cranial Nerve VIII: Hearing: Unremarkable Hearing to Normal Conversational Volume
Muscle Strength, Overall: Other (Limited left shoulder abduction due to pain, full arm flexion and literacy coordinator strength bilaterally, 4/5 hip flexion bilaterally and equal)
Touch Sensation: Unremarkable
Data Reviewed
-
MRI Head: Report Reviewed and Image Reviewed
Labs: Report Reviewed
--- NOTE | 2023-08-30 10:44 | PTOTSP ---
SPEECH THERAPY SWALLOW AND SPEECH/LANGUAGE/COGNITIVE COMMUNICATION EVALUATION:
Patient presents with grossly functional oropharyngeal swallow at this time. No signs of aspiration present at this time. However, patient remains at risk for aspiration given newly discovered brain mass and predisposing dysphagia risk factors of
history of aspiration 'event' and prior CVA. Patient with CXR concerning for developing pneumonia. Given patient's grossly functional mental status, patient appears safe to continue oral diet at this time with aspiration precautions in place.
Recommend Regular texture diet, thin liquids. Medications whole with thin liquid, one at a time. Aspiration precautions including: No straw; Upright positioning; Small single sips/bites; Slow rate of intake; Monitor lung sounds. Discontinue oral
diet if signs of aspiration or decline in mental or respiratory status, and contact ST for re-assessment. Speech therapy to follow, assess diet tolerance and modify as appropriate, monitor CXR and labs, determine indication for repeat VFSS if
warranted, and provide continued education regarding aspiration risks and precautions.
Patient presents with mild cognitive communication impairments characterized by mildly reduced STM and mildly reduced attention during high-level mental math word problems. Patient endorsed anomia for past several weeks which was not seen during
evaluation. Recommend trial speech therapy services at the acute care level. Patient may benefit from continued speech therapy services at the acute/subacute level pending diagnosis and plan of care.
RECOMMEND:
1) Regular texture diet, thin liquids
2) Medications whole with thin liquid, one at a time
3) Aspiration precautions including: No straw; Upright positioning; Small single sips/bites; Slow rate of intake; Monitor lung sounds. Discontinue oral diet if signs of aspiration or decline in mental or respiratory status, and contact ST for
re-assessment
4) Speech therapy to follow, assess diet tolerance and modify as appropriate, monitor CXR and labs, determine indication for repeat VFSS if warranted, and provide continued education regarding aspiration risks and precautions.
5) Recommend trial speech therapy services at the acute care level targeting STM and higher level attention skills
[2023-08-30] MEDS: NICODERM TRANSDERMAL TRANSDERM (10:46)
[2023-08-30] MEDS: LASIX 80 MG PO (10:46)
[2023-08-30] MEDS: PROTONIX 40 MG PO ×2 (10:47→19:58)
[2023-08-30] MEDS: OSCAL CAL 500 1500 MG PO ×2 (10:49→19:58)
[2023-08-30] MEDS: VIBRAMYCIN 260 MG IV ×2 (11:08→23:14)
--- NOTE | 2023-08-30 11:22 | CON.CAR ---
Addendum entered and electronically signed by Mary Larson MD 08/30/23 19:01:
I saw and examined the patient.
The Professor Of Physics's note was reviewed and I agree with the note.
Comment: Patient is a 72-year-old female with past medical history of hypertension, hyperlipidemia paroxysmal atrial fibrillation with prior stroke on chronic Eliquis therapy, chronic amiodarone therapy, coronary artery disease status post initial
Taxus stent to LAD in 2003, complicated by late stent thrombosis managed with a Cypher stent in 2004, thrombotic occlusion again at the proximal edge of remotely implanted Taxus stent treated with suction thrombectomy and Promus drug-eluting stent
in February 2013 with subsequent in-stent stenosis of previously placed proximal LAD and mid LAD stents managed with PTCA of the proximal and mid LAD in October 2016 with ischemic cardiomyopathy, last EF of 45 to 50% in April 2022 who presented back
again to the emergency department with a headache found to have a new brain mass on head CT with concern for a possible glioblastoma who is now being considered for neurosurgery and we are being consulted given her prior history of coronary artery
disease and stent thrombosis to help guide perioperative management.
Patient has been managed as an outpatient on daily Plavix, Eliquis twice daily as well as aspirin Monday and Monday. Over the years her outpatient toll service observer for any perioperative management had admitted patient to the hospital and
followed a off label initiation of Integrilin drip while she was off Plavix with Integrilin generally stopping the morning of procedure with Plavix then being resumed when stable postoperatively, usually on postop day 1 after it was stopped for 3
days prior to surgery.
Lengthy discussion was had with neurosurgeon, Dr. Jenni Bae at [facility] who is the accepting physician for potential transfer later this week, no set date and a tentative surgery date of possibly September 03 the patient potentially
is high risk for bleeding perioperatively if her antiplatelet agents are continued even including a baby aspirin alone versus high risk for thrombosis and perioperative NE in case all of her antiplatelet agents are stopped. Given lack of
reversibility available with Integrilin, from neurosurgery standpoint the preference would be to bridge with a heparin drip. Given her high CHADS2 Vascor with a prior stroke, while she is off Eliquis this is reasonable to do anyway.
We had a long discussion that is to be continued in regards to consideration of possibly looking into availability of cangrelor at a facility to be used perioperatively to minimize risk for stent thrombosis as we bridge her safely for neurosurgery
instead of completely stopping both antiplatelet agents versus potentially excepting the high perioperative risks that may exist while being off all antiplatelet agents of perioperative NE and possible stent thrombosis given high bleeding risk from
a neurosurgical standpoint. For now until a decision is made given neurosurgery is not emergent, we will continue her current regimen of antiplatelet agent. We do agree with holding Eliquis and transitioning to a heparin drip IV.
We will also have her outpatient toll service observer, Dr. Rashid Hansen weigh in tomorrow.
Mary Larson MD, [facility], [facility]
Original Note:
Consultation
Consultation Request
Date/Time Consultation Requested: 08/30/23
Date/Time Consultation Performed: 08/30/23
Requesting Provider: Dr. Torres with the Hospitalists
Performing Provider: Dr. Collins
Reason for Consultation: Pre-operative cardiac eval for h/o stent thrombosis
Medical History
-
History of Present Illness:
[facility] with KOHLER and abdominal pain and ultimately she was found to have a new brain mass and is being considered for surgery so cardiology has been consulted due to h/o recurrent stent thrombosis. Patient had a
constellation of symptoms prompting an ER visit 08/25/23, but she was discharged to home. She then came back 08/28/23 and was hypoxic. ABG was abnormal with pO2 43. Patient had a CT head 08/28/23 that showed possible mass vs subacute infarct. Patient then
had an MRI brain that showed new cystic, enhancing lesion within the right occipital lobe with moderate amount of vasogenic edema. Patient was seen in consultation by Neurosurgery and has been recommended excisional biopsy. Patient will need to be
off of OAC and DAPT. Patient takes Eliquis for h/o paroxysmal Afib. There is a h/o small old right lateral ventricle lacunar infarct. Patient takes DAPT for h/o PCI and recurrent stent thrombosis. Patient has a very unusual history with multiple
episodes of LAD stent thrombosis related to interruption of DAPT and so cardiology strategy for years, although again unusual, has been admission to the hospital for initiation of glycoprotein IIB IIIa inhibitor in the form of Integrilin whenever
Plavix is interrupted. Integrilin generally stopped the morning of planned procedure and then Plavix resumed when stable post-op, generally post-op day 1. Patient took her usual dose of Plavix 08/29/23 PM and takes aspirin 81 mg MWF.
PMH:
CAD
s/p Taxus stent to LAD 2003
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
thrombotic occlusion proximal edge of remotely implanted Taxus stents treated with suction thrombectomy and 3 mm Promus LISA 03/14/13
in-stent stenosis of previously placed prox LAD and mid LAD stents managed with PTCA of the proximal and mid LAD 11/11/16
Ischemic cardiomyopathy EF 45-50% by echo 04/27/22
Hyperlipidemia
Smoker
Paroxysmal atrial fibrillation
Chronic Eliquis OAC
Chronic amiodarone therapy
HTN
DJD
Past Medical History
Past Medical History: Other (in HPI)
Past Surgical History: Appendectomy, Cholecystectomy, Gynecological (hysterectomy) and Orthopedic (right LINDSAY, right TKA)
Social History
Tobacco: Smoker
Alcohol: None
Drug: None
Personal:
Living: With Family
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
Family History
Family History: Diabetes and Hypertension
Allergies / Home Medications
Allergy/AdvReac Type Severity Reaction Status Date / Time
alendronate sodium Allergy dizzy, Verified 08/25/23 14:50
[From Fosamax] tight chest
duloxetine HCl Allergy heart Verified 08/25/23 14:50
[From Cymbalta] palpitations,vomiting
hylan G-F 20 [From Synvisc] Allergy Swelling Verified 08/28/23 23:05
Iodinated Contrast Media Allergy Hives Verified 08/25/23 14:50
iodine Allergy Hives Verified 08/28/23 23:05
latex [Latex] Allergy Anaphylaxis Verified 08/25/23 14:50
niacin [Niacin] Allergy hives and Verified 08/25/23 14:50
burning
skin
oxycodone [Oxycodone] Allergy depressed, Verified 08/25/23 14:50
no appetite
simvastatin [From Zocor] Allergy myalgias, Verified 08/28/23 23:05
swelling
valsartan [From Diovan] Allergy DIZZINESS Verified 08/25/23 14:50
�Medication �Instructions �Recorded �Confirmed �Type
rosuvastatin 20 mg tablet 20 mg PO HS High cholesterol 10/01/15 08/28/23 History
clopidogrel 75 mg tablet 75 mg PO HS Blood clot 10/01/20 08/28/23 Rx
prevention/tx ##0
apixaban 5 mg tablet (Eliquis) 5 mg PO BID Blood clot 10/15/20 08/28/23 Rx
prevention/tx ##0
amiodarone 200 mg tablet 200 mg PO HS Heart 04/18/22 08/28/23 History
Disease/Condition
cyanocobalamin (B12)-cobamamide 1 samia sublingual HS Supplement 04/18/22 08/28/23 History
5,000 mcg-100 mcg sublingual
lozenge (B12)
ezetimibe 10 mg tablet (Zetia) 10 mg PO HS Heart Failure 04/18/22 08/28/23 History
furosemide 80 mg tablet 80 mg PO DAILY 04/18/22 08/28/23 History
acetaminophen 500 mg tablet 1,000 mg PO BIDPRN PRN mild pain 08/28/23 08/28/23 History
(Tylenol Extra Strength)
ascorbic acid (vitamin C) 500 mg 1,500 mg PO HS Supplement 08/28/23 08/28/23 History
tablet (Vitamin C)
aspirin 81 mg tablet,delayed 81 mg PO MOWEFR@2200 Blood Clot 08/28/23 08/28/23 History
release Prevention/Tx
calcium carbonate 1,500 mg PO BID Supplement 08/28/23 08/28/23 History
cholecalciferol (vitamin D3) 50 50 mcg PO HS Supplement 08/28/23 08/28/23 History
mcg (2,000 unit) tablet
famotidine 20 mg tablet 20 mg PO [id number] PRN indigestion 08/28/23 08/28/23 History
ipratropium bromide 0.02 % 0.5 mg inhalation R Q8HPRN PRN sob 08/28/23 08/28/23 History
solution for inhalation
levalbuterol tartrate 45 1 puff inhalation R Q4HPRN PRN sob 08/28/23 08/28/23 History
mcg/actuation aerosol inhaler
ondansetron 4 mg disintegrating 4 mg PO [id number] PRN nausea/vomiting 08/28/23 08/28/23 History
tablet
oxycodone 5 mg tablet 5 mg PO Q6HPRN PRN severe pain 08/28/23 08/28/23 History
Review of Systems
-
History Source: Patient and Family (her youngest daughter was bedside)
All other systems: Negative unless noted
Physical Exam
Vital Signs
Temp Pulse Resp BP Pulse Ox
97.9 F 67 22 148/65 95
08/30/23 07:30 08/30/23 10:46 08/30/23 07:30 08/30/23 10:46 08/30/23 07:30
GEN: NAD. AAO x3
HEENT: EOMI, MMM
LUNGS: CTA B/L without wheeze
CV: Reg,no murmur
ABD: soft, BS+, NT, ND
EXT: No clubbing, cyanosis, lesions or edema B/L
NEURO: Gross non-focal
SKIN: No rash, warm, dry, pink
Lab Results
08/29/23 06:22
08/29/23 06:22
Impression / Plan
-
Primary Care Physician: Dr. Sterling
Primary Seat Covers Trimmer: Dr. Rashid Hansen
Impression:
Newly diagnosed enhancing lesion right occipital lobe by MRI brain 08/29/23
CAD
s/p Taxus stent to LAD 2003
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
thrombotic occlusion proximal edge of remotely implanted Taxus stents treated with suction thrombectomy and 3 mm Promus LISA 03/14/13
in-stent stenosis of previously placed prox LAD and mid LAD stents managed with PTCA of the proximal and mid LAD 11/11/16
Ischemic cardiomyopathy EF 45-50% by echo 04/27/22
Hyperlipidemia
Smoker
Paroxysmal atrial fibrillation
Chronic Eliquis OAC
Chronic amiodarone therapy
HTN
DJD
Echo 04/27/22: EF 45-50%, apex is aneurysmal and akinetic, no significant valve disease
Plan:
-[facility] with KOHLER and abdominal pain and ultimately she was found to have a new brain mass and is being considered for surgery so cardiology has been consulted due to h/o recurrent stent thrombosis. Patient had a
constellation of symptoms prompting an ER visit 08/25/23, but she was discharged to home. She then came back 08/28/23 and was hypoxic. ABG was abnormal with pO2 43. Patient had a CT head 08/28/23 that showed possible mass vs subacute infarct. Patient then
had an MRI brain that showed new cystic, enhancing lesion within the right occipital lobe with moderate amount of vasogenic edema. Patient was seen in consultation by Neurosurgery and has been recommended excisional biopsy. Patient will need to be
off of OAC and DAPT. Patient takes Eliquis for h/o paroxysmal Afib. There is a h/o small old right lateral ventricle lacunar infarct. Patient takes DAPT for h/o PCI and recurrent stent thrombosis. Patient has a very unusual history with multiple
episodes of LAD stent thrombosis related to interruption of DAPT and so cardiology strategy for years, although again unusual, has been admission to the hospital for initiation of glycoprotein IIB IIIa inhibitor in the form of Integrilin whenever
Plavix is interrupted. Integrilin generally stopped the morning of planned procedure and then Plavix resumed when stable post-op, generally post-op day 1. Patient took her usual dose of Plavix 08/29/23 PM and takes aspirin 81 mg MWF.
-Talked with patient and daughter in room. Recommended ongoing tele monitoring. Tele monitoring should continue upon transfer to [facility] as well.
-Will stop Plavix 08/30/23. Last dose of Plavix 08/29/23.
-Will stop aspirin 08/30/23. Last dose of aspirin was 08/26/23.
-Eliquis stopped this admission. No doses of Eliquis administered this admission so presumably last dose of Eliquis was 08/28/23.
-Reviewed with neurosurgery and plan would be to start heparin gtt due to reversibility as opposed to Integrilin. Interventional cardiology reviewing case as well and investigating possibility of an alternative IIB IIIa inhibitor that is not
currently available at .
-ECG reviewed by me shows SR with QTc 490 ms. Cont amiodarone 200 mg daily.
--- NOTE | 2023-08-30 16:02 | W.PN.HOSP.TC ---
Today's Communication/Plan
-
All discussed with the patient and detail
Discussed with the 2 daughters at the bedside in detail
Discussed with the nurse
Assessment / Plan
Assessment / Plan
Physical exam:
General: Awake, alert and oriented x3, not in distress and holds appropriate conversation.
HEENT: No active discharge, ecchymosis or bruising, moist lips, tongue and mucous membrane.
Eyes: No discharge or red conjunctiva, no nystagmus, pupils are reactive and equal
Neck:Supple, no JVD no bruit no goiter.
Respiratory: Normal AP contour and diameter, normal chest wall movement, normal respiratory effort, no respiratory distress,
Lungs: Good air entry bilaterally, no wheezing or rhonchi, no rales or crackles
Heart: S1, S2 regular, normal rate, no added sound.
Gastrointestinal: Positive bowel sounds, soft, nontender, no guarding or rigidity or organomegaly
Musculoskeletal: Decreased range of motion of the left shoulder especially the left 1,, no chest wall abnormality or tenderness. All other joints and extremities have good range of motion, no muscle tenderness or any joint swelling or tenderness.
Extremities: pitting edema, good peripheral pulses, good range of motion
Skin: Warm and dry, no ulceration, normal color.
Neurological: Awake, alert and oriented x3, , speech clear and comprehensive, good muscle tone, normal sensory and motor function
Psychiatric: Normal mood, normal thought and judgment, normal affect,
Assessment and plan:
# Mass versus subacute infarct in the right occipital lobe
# History of CVA
-Patient presents with new headache. Nonfocal neurologically on gross exam. Await neurology input.
-MRI brain reviewed showing mass in the right occipital lobe, benign lesion versus primary versus metastases lesion
-Neurosurgery and neurology input appreciated
-Neurosurgery planning surgery look like Monday in [facility] once medically clear and they recommended cardiology clearance
-Cardiology consult regarding cardiac history also aspirin and Plavix, her last stent was 4 years ago
-Continue to hold Eliquis
-Pain medication
# Right upper lobe/lingula and left opacities likely pneumonia
-Patient presents with GI symptoms including episodes of emesis. Unclear position of the patient during emesis. Right upper lobe groundglass opacity noted on Chest CT ,aspiration is a possibility depending on the position she was in during emesis.
Could also be a community-acquired pneumonia.
-COVID-negative
-Neg influenza
-Check sputum culture
-CW Ceftriaxone/doxycycline
- Would need follow up after abx
-Monitor vital sign
Tylenol as needed
# Palpable abdominal mass with N/V ;some abdominal pain prior to presentation
-Check CT abdomen pelvis
# GERD/gastritis
# History of hiatal hernia
-cw Protonix twice daily
# Left shoulder pain secondary to recent Prolia injection/untreated rotator cuff tears,
His
-continue PRN Percocet
Paroxysmal atrial fibrillation
-Continue amiodarone
-Hold Eliquis
CAD with history of stent
-Continue aspirin, Plavix till seen by cardiology per recommendation of neurosurgery
Chronic HFrEF
-Continue Lasix
-Continue nebivolol
COPD
-No wheezing on examination
-Continue inhalers
Active smoker
-Nicotine patch
Essential hypertension
Orthostatic hypotension
History of childhood migraines
Hypercholesterolemia
-Continue statin, Zetia,
GERD
Hypercholesterolemia
Anxiety/depression
-Continue as needed Ativan
Full code
DVT prophylaxis�SCDs
NPO
DW neurology
DW RN
Needs prep for IV contrast allergy.
Anticipated Discharge: > 48 hours
Subjective/Interval History
-
Date of Service: August 30, 2023
Seen and examined, awake and alert, able to provide information overall looks calm and comfortable other than chronic pain of the both shoulders specially the left shoulder with limitation of movement above 90 degrees because of known history of
rotator cuff tear-no any other complaint, no fever or chills or cough or congestion, no nausea or vomiting.
2 daughters and the nurse at the bedside.
Objective Data
-
Vital Signs:
Vital Signs
Temp Pulse Resp BP Pulse Ox
97.7 F 72 20 127/48 95
08/30/23 11:00 08/30/23 11:00 08/30/23 11:00 08/30/23 11:00 08/30/23 13:56
I&O
08/29/23 08/30/23 08/31/23
07:59 07:59 07:59
Intake Total 960 / 960 6340 / 6340
Output Total 500 / 500
Balance 460 / 460 6340 / 6340
Review of Systems
-
All other systems: Reviewed and negative
--- NOTE | 2023-08-30 16:33 | CM ---
Chart reviewed and patient is for possible neurosurgery pending workup.
Plan; To follow with patient progress.
[2023-08-30] MEDS: PERCOCET 5/325 1 TABLET PO (16:44)
[2023-08-30 21:59] LABS: APTT 26.3 Sec (23.4-35.0)
[2023-08-30] MEDS: PACERONE 200 MG PO (22:51)
[2023-08-30] MEDS: ZETIA 10 MG PO (22:51)
[2023-08-30] MEDS: VITAMIN C 1500 MG PO (22:51)
[2023-08-30] MEDS: PLAVIX 75 MG PO (22:51)
[2023-08-30] MEDS: CRESTOR 20 MG PO (22:51)
[2023-08-30] MEDS: VITAMIN D3 (cholecalciferol) 50 MCG PO (22:51)
[2023-08-30] MEDS: ROCEPHIN 1000 MG IV (22:52)
[2023-08-30] MEDS: STERILE WATER FOR INJECTION 10 ML IV (22:53)
[2023-08-30] MEDS: HEPARIN 25000 UNITS/250 ML IV (23:06)
[2023-08-31 03:49] VITALS: BP 129/70
[2023-08-31 05:40] VITALS: BMI 36.1
[2023-08-31] MEDS: PERCOCET 5/325 1 TABLET PO ×3 (05:43→22:14)
[2023-08-31 08:10] VITALS: BP 121/53
[2023-08-31] MEDS: LASIX 80 MG PO (09:26)
[2023-08-31] MEDS: NICODERM TRANSDERMAL 7 MG TRANSDERM (09:26)
[2023-08-31] MEDS: OSCAL CAL 500 1500 MG PO ×2 (09:27→20:54)
[2023-08-31] MEDS: PROTONIX 40 MG PO ×2 (09:27→20:46)
--- NOTE | 2023-08-31 10:44 | W.PN.CARDCBS ---
Today's Communication / Plan
-
Stop aspirin and Plavix
Start Integrilin tomorrow
Stay off Eliquis
Continue heparin
Transfer to [place] per neurosurgery
Impression / Plan
-
Primary Care Physician: Dr. Sterling
Primary Fixed Income Manager: Dr. Rashid Hansen
Impression:
Newly diagnosed enhancing lesion right occipital lobe by MRI brain 08/29/23
CAD
s/p Taxus stent to LAD 2003
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
thrombotic occlusion proximal edge of remotely implanted Taxus stents treated with suction thrombectomy and 3 mm Promus LISA 03/14/13
in-stent stenosis of previously placed prox LAD and mid LAD stents managed with PTCA of the proximal and mid LAD 11/11/16
Ischemic cardiomyopathy EF 45-50% by echo 04/27/22
Hyperlipidemia
Smoker
Paroxysmal atrial fibrillation
Chronic Eliquis OAC
Chronic amiodarone therapy
HTN
DJD
Echo 04/27/22: EF 45-50%, apex is aneurysmal and akinetic, no significant valve disease
Plan:
Stable cardiac status, I have spoken with Dr. Larson and texted with Dr. Bae. Await transfer to [facility].
Will stop aspirin and Plavix. Patient currently is on heparin.
Would favor the admittedly unusual strategy we have used before with [place], which is Integrilin infusion off clopidogrel, as patient has had 3 or 4 episodes of LAD stent thrombosis off Plavix in the past with Cypher stents in place. Admittedly her
stents were placed many many years ago but I would feel more comfortable with this. Integrilin has a half-life of 2.5 hours and could be discontinued 24 hours prior to the procedure, heparin could be discontinued in a similar timeframe. Would
start aspirin on postop day 3 and Plavix thereafter once safe from a neurosurgical standpoint.
Otherwise, no new recommendations.
Patient is in sinus rhythm. Now off Eliquis.
Progress Note - Fixed Income Manager
Subjective
Date of Service: August 31, 2023:
No complaint
Allergies, outpatient meds reviewed
Current medications: Doxycycline, Atrovent, Xopenex, heparin IV, ceftriaxone, Protonix, nicotine patch, amiodarone, vitamin C, aspirin 81 mg a day on Monday, Plavix 75 mg a day, ezetimibe 10 mg at bedtime, furosemide 80 mg a day,
rosuvastatin 20 mg a day,
PMH/PSH/SH/FH: Reviewed
Review of systems: Negative except as above
No blood work today
Objective
Labs:
08/29/23 06:22
08/29/23 06:22
Labs
Hgb 11.9 g/dL (12.0-16.0) L 08/29/23 06:22
Hct 36.2 % (37.0-47.0) L 08/29/23 06:22
Plt Count 238 10^3/uL (130-400) 08/29/23 06:22
APTT Cancelled 08/31/23 11:48
Sodium 134 mmol/L (135-145) L 08/29/23 06:22
Potassium 4.4 mmol/L (3.5-5.1) 08/29/23 06:22
BUN 10 mg/dl (7-17) 08/29/23 06:22
Creatinine 0.5 mg/dL (0.6-1.0) L 08/29/23 06:22
Glucose 107 mg/dl (70-99) H 08/29/23 06:22
Vital Signs and I&O:
Vital Signs
Temp Pulse Resp BP Pulse Ox
36.5 C 68 18 121/53 95
08/31/23 08:10 08/31/23 09:26 08/31/23 08:10 08/31/23 09:26 08/31/23 08:10
Vital Signs
Temp Pulse Resp BP Pulse Ox
36.5 C 68 18 121/53 95
08/31/23 08:10 08/31/23 09:26 08/31/23 08:10 08/31/23 09:26 08/31/23 08:10
Intake & Output
08/29/23 08/30/23 08/31/23 09/01/23
07:59 07:59 07:59 07:59
Intake Total 960 / 960 6340 / 6340 540 / 540
Output Total 500 / 500 450 / 450
Balance 460 / 460 6340 / 6340 90 / 90
Physical Exam
Physical Exam
121/53, pulse 68, respirate 18, afebrile, sats 95%, head neck exam unremarkable, lungs are clear, regular rate and rhythm, soft murmur, JVD okay, extremities without edema
[2023-08-31] MEDS: VIBRAMYCIN 260 MG IV ×2 (11:25→23:20)
[2023-08-31 11:40] VITALS: BP 137/73
[2023-08-31 13:22] LABS: APTT 55.9 Sec (23.4-35.0)
--- NOTE | 2023-08-31 14:25 | CM ---
Patient seen bedside, awaiting transfer to [place]. CM will continue to follow for discharge planning needs.
Plan; transfer to [place] for neurosurgery.
--- NOTE | 2023-08-31 14:39 | W.PN.HOSP.TC ---
Today's Communication/Plan
-
All discussed with the patient and her family at the bedside
Discussed with
Assessment / Plan
Assessment / Plan
Physical exam:
General: Awake, alert and oriented x3, not in distress and holds appropriate conversation.
HEENT: No active discharge, ecchymosis or bruising, moist lips, tongue and mucous membrane.
Eyes: No discharge or red conjunctiva, no nystagmus, pupils are reactive and equal
Neck:Supple, no JVD no bruit no goiter.
Respiratory: Normal AP contour and diameter, normal chest wall movement, normal respiratory effort, no respiratory distress,
Lungs: Good air entry bilaterally, no wheezing or rhonchi, no rales or crackles
Heart: S1, S2 regular, normal rate, no added sound.
Gastrointestinal: Positive bowel sounds, soft, nontender, no guarding or rigidity or organomegaly
Musculoskeletal: Decreased range of motion of the left shoulder especially the left 1,, no chest wall abnormality or tenderness. All other joints and extremities have good range of motion, no muscle tenderness or any joint swelling or tenderness.
Extremities: pitting edema, good peripheral pulses, good range of motion
Skin: Warm and dry, no ulceration, normal color.
Neurological: Awake, alert and oriented x3, , speech clear and comprehensive, good muscle tone, normal sensory and motor function
Assessment and plan:
# Mass versus subacute infarct in the right occipital lobe
# History of CVA
-Patient presents with new headache. Nonfocal neurologically on gross exam. Await neurology input.
-MRI brain reviewed showing mass in the right occipital lobe, benign lesion versus primary versus metastases lesion
-Neurosurgery and neurology input appreciated
-Neurosurgery planning surgery look like Monday in [facility] once medically clear and they recommended cardiology clearance, assistant secretary and blood pressure
-Cardiology recommend to go ahead and hold aspirin and Plavix and start Integrilin, Because of the history of stent specially her LAD stent have 3 episodes of the thrombosis in the past off Plavix, Integrilin could be held 2 and half hour prior to
the procedure as well as heparin drip
-Continue to hold Eliquis
-Pain medication
# Right upper lobe/lingula and left opacities likely pneumonia
-Patient presents with GI symptoms including episodes of emesis. Unclear position of the patient during emesis. Right upper lobe groundglass opacity noted on Chest CT ,aspiration is a possibility depending on the position she was in during emesis.
Could also be a community-acquired pneumonia.
-COVID-negative
-Neg influenza
-Check sputum culture
-CW Ceftriaxone/doxycycline
- Would need follow up after abx
-Monitor vital sign
Tylenol as needed
# Palpable abdominal mass with N/V ;some abdominal pain prior to presentation
-CT did not show anything could be a small lipoma and a ventral hernia containing fat
# GERD/gastritis
# History of hiatal hernia
-cw Protonix twice daily
# Left shoulder pain secondary to recent Prolia injection/untreated rotator cuff tears,
His
-continue PRN Percocet
Paroxysmal atrial fibrillation
-Continue amiodarone
-Hold Eliquis
CAD with history of stent
-Continue aspirin, Plavix till seen by cardiology per recommendation of neurosurgery
Chronic HFrEF
-Continue Lasix
-Continue nebivolol
COPD
-No wheezing on examination
-Continue inhalers
Active smoker
-Nicotine patch
Essential hypertension
Orthostatic hypotension
History of childhood migraines
Hypercholesterolemia
-Continue statin, Zetia,
GERD
Hypercholesterolemia
Anxiety/depression
-Continue as needed Ativan
Full code
DVT prophylaxis�SCDs
NPO
DW neurology
DW RN
Needs prep for IV contrast allergy.
Neurosurgery to arrange transfer to [facility]
Anticipated Discharge: > 48 hours
Subjective/Interval History
-
Date of Service: August 31, 2023
Seen and examined, awake and alert, and 2 daughters at the bedside, denies any particular complaint like chest pain or shortness of breath or fever or chill or any weakness or numbness in extremity, no headache or vision change.
No changes stool or urine color, started on heparin drip.
Objective Data
-
Labs:
Laboratory Results
08/31/23 08/31/23 08/31/23
05:48 11:48 12:35
APTT 51.0 H Cancelled 55.9 H
08/31/23
19:30
APTT Pending
Vital Signs:
Vital Signs
Temp Pulse Resp BP Pulse Ox
97.8 F 66 17 137/73 95
08/31/23 11:40 08/31/23 11:40 08/31/23 11:40 08/31/23 11:40 08/31/23 11:40
I&O
08/30/23 08/31/23 09/01/23
07:59 07:59 07:59
Intake Total 6340 / 6340 540 / 540
Output Total 450 / 450
Balance 6340 / 6340 90 / 90
Review of Systems
-
All other systems: Reviewed and negative
[2023-08-31 15:17] VITALS: BP 138/66
[2023-08-31] MEDS: HEPARIN 25000 UNITS/250 ML IV (17:44)
[2023-08-31 19:00] VITALS: BP 123/65
--- NOTE | 2023-08-31 19:34 | PN.NS ---
Subjective
-
Patient seen and examined. Daughter, Nancy, is at bedside. August patient's other daughter, has been conferenced in during this encounter. Patient reports mild headache, which is somewhat alleviated with oxycodone. She does admit that she has
not been asking/taking the pain medications as prescribed.
Physical Exam
-
Exam:
Exam:
Awake, alert, no apparent distress.
Head is normocephalic atraumatic
Neck is supple
Cardiac rhythm irregular
Abdomen is soft
Extremities are warm
Cranial nerves II through XII are grossly intact.
Left visual field cut.
Motor: 5/5 strength in right upper, right lower extremity. 5/5 strength left lower extremity. 3/5 strength diffusely in left upper extremity secondary to pain. No pronator drift.
Gait not tested.
Sensation to light touch intact in bilateral upper and lower extremities.
CT of the chest demonstrated groundglass densities, concerning for possible development of pneumonia. No neoplasm was seen. CT of the abdomen/pelvis negative for neoplasm.
MRI of the brain with and without contrast was reviewed. There is a cystic lesion within the right occipital lobe with enhancement of the cyst wall suspicious for underlying lesion/neoplasm. There is moderate amount of FLAIR signal hyperintensity
surrounding this to suggest vasogenic edema.
Problems
-
Problem Status Onset Code
Pneumonia J18.9
Assessment / Plan
-
This is a 72-year-old female who presented with headaches, and cough. Patient also had symptoms of nausea vomiting. MRI of the brain does demonstrate right cystic occipital lesion. Patient also has right upper lobe opacity, could be pneumonia,
but is COVID-negative, negative for influenza. She is currently being treated with ceftriaxone and doxycycline. Positive smoking history.
MRI of the brain demonstrates new cystic, enhancing lesion within the right occipital lobe with moderate amount of vasogenic edema. 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
Extensive discussion was held at the bedside with the patient, her daughter Nancy, and her daughter, August, via telephone.
I discussed, reviewed with them my discussions with cardiology at outside hospital including discussions with Dr. Mary Larson, and Dr. Jose Hansen, her longtime powder room attendant. Given her extensive cardiac history, and history of being on Eliquis,
aspirin, and Plavix with multiple incidents in the past of in-stent thromboses, we discussed the risks of perioperative cardiac events, while holding dual antiplatelet therapy and anticoagulation. Patient has been initiated on a heparin drip, while
her Eliquis is being held. She had aspirin this morning, and Plavix last dose was yesterday evening.
Appreciate Dr. Hansen's recommendations regarding perioperative management which, in the past has been conducted by means of transitioning the patient to an Integrilin drip for neurologic IR procedures. The patient also endorses that this may have
been a similar process when she underwent hip surgery, as well as shoulder surgery. She does admit that after her shoulder surgery in 2016, she did have an episode of chest pain, prompting her to proceed to emergent catheterization, which time she
'flatlined' on the table. She also recalls that the anticoagulation may have been immediately restarted after her hip surgery, and she does not recall as to whether or not the dual antiplatelet therapy/anticoagulation was held for a significantly
prolonged period of time postoperatively after her hip surgery.
I did explain to both her and her daughters that with regards to open cranial surgery, however, there is very limited literature with regards to proceeding with open craniotomy surgery while on dual antiplatelet therapy with risk of significant
intracranial hemorrhage perioperatively. Additionally, there is also limited literature with regards to utilizing Integrilin perioperatively for patients requiring dual antiplatelet therapy due to high risk of in-stent thromboses for open cranial
procedures.
Daughter expressed understanding of this, and would like to inquire/investigate whether there is any other noninvasive means of obtaining diagnosis for this lesion. Therefore, would recommend oncology consultation/input.
Additionally, as per Dr. Larson's recommendation/suggestion, reasonable to investigate whether Cangrelor has been utilized at other tertiary care facilities perioperatively for open craniotomy/neurosurgical procedures for high risk cardiac patients,
such as Ms. Waldrup. Daughters are agreeable to this as well.
Will discuss with hospital medicine tomorrow. Additionally, recommend initiation of dexamethasone 2 mg twice daily for symptomatic relief.
Today's Communication
-
Discussed with patient, patient's daughter Nancy and Madison.
[2023-08-31 20:12] LABS: APTT 84.4 Sec (23.4-35.0)
[2023-08-31] MEDS: VITAMIN D3 (cholecalciferol) 50 MCG PO (20:45)
[2023-08-31] MEDS: CRESTOR 20 MG PO (20:45)
[2023-08-31] MEDS: PACERONE 200 MG PO (20:45)
[2023-08-31] MEDS: DECADRON 2 MG PO (20:46)
[2023-08-31] MEDS: VITAMIN C 1500 MG PO (20:46)
[2023-08-31] MEDS: ZETIA 10 MG PO (20:46)
[2023-08-31] MEDS: STERILE WATER FOR INJECTION 10 ML IV (22:14)
[2023-08-31] MEDS: ROCEPHIN 1000 MG IV (22:14)
[2023-08-31 23:00] VITALS: BP 123/52
[2023-09-01] VITALS (7 sets, daily range): BP systolic 111–154; BP diastolic 55–100; BMI 36.8
[2023-09-01 03:13] LABS: APTT 122.7 Sec (23.4-35.0)
[2023-09-01] MEDS: HEPARIN 25000 UNITS/250 ML IV (09:29)
[2023-09-01 09:58] LABS: APTT 101.8 Sec (23.4-35.0)
[2023-09-01] MEDS: DECADRON 2 MG PO ×2 (10:11→19:41)
[2023-09-01] MEDS: VIBRAMYCIN 100 MG PO ×2 (10:11→19:42)
[2023-09-01] MEDS: PROTONIX 40 MG PO ×2 (10:11→19:41)
[2023-09-01] MEDS: LASIX 80 MG PO (10:13)
[2023-09-01] MEDS: OSCAL CAL 500 1500 MG PO ×2 (10:17→19:46)
[2023-09-01] MEDS: PERCOCET 5/325 1 TABLET PO ×2 (10:17→19:39)
[2023-09-01] MEDS: NICODERM TRANSDERMAL 7 MG TRANSDERM (10:18)
--- NOTE | 2023-09-01 11:04 | W.PN.CARDCBS ---
Today's Communication / Plan
-
Begin Integrilin if surgery is planned for next week and continue to hold aspirin and Plavix.
If change in plans means delaying surgery, resume aspirin/Plavix/Eliquis
Stop heparin, begin subcu Lovenox
Await final decision regarding disposition
Impression / Plan
-
Primary Care Physician: Dr. Sterling
Primary Radiator Repairer: Dr. Rashid Hansen
Impression:
Newly diagnosed enhancing lesion right occipital lobe by MRI brain 08/29/23
CAD
s/p Taxus stent to LAD 2003
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
thrombotic occlusion proximal edge of remotely implanted Taxus stents treated with suction thrombectomy and 3 mm Promus LISA 03/14/13
in-stent stenosis of previously placed prox LAD and mid LAD stents managed with PTCA of the proximal and mid LAD 11/11/16
Ischemic cardiomyopathy EF 45-50% by echo 04/27/22
Hyperlipidemia
Smoker
Paroxysmal atrial fibrillation
Chronic Eliquis OAC
Chronic amiodarone therapy
HTN
DJD
Echo 04/27/22: EF 45-50%, apex is aneurysmal and akinetic, no significant valve disease
Plan:
Stable cardiac status, plan had been to begin Integrilin today anticipating surgery on Monday or Monday of next week, holding aspirin and Plavix
Okay to stop heparin, start subcu Lovenox.
Apparently neurosurgical plan has changed and transfer now being recommended to the [facility].
Will await final disposition.
Progress Note - Radiator Repairer
Subjective
Date of Service: September 01, 2023:
No new complaints.
Per Dr. Wong, Dr Bae is now recommending transfer to [facility]
Allergies, outpatient meds: Reviewed
PMH/PSH/FH/SH: Reviewed
Current medications: Ceftriaxone, Atrovent, Xopenex, pantoprazole, nicotine patch, amiodarone 200 mg daily, ezetimibe 10 mg a day, furosemide 80 mg a day, rosuvastatin 20 mg at bedtime, IV heparin, dexamethasone 2 mg p.o. every 12, doxycycline, and
eptifibatide
ROS negative except as above
No new labs other than PTT
Objective
Labs:
08/29/23 06:22
08/29/23 06:22
Labs
Hgb 11.9 g/dL (12.0-16.0) L 08/29/23 06:22
Hct 36.2 % (37.0-47.0) L 08/29/23 06:22
Plt Count 238 10^3/uL (130-400) 08/29/23 06:22
APTT Cancelled 09/01/23 10:20
Sodium 134 mmol/L (135-145) L 08/29/23 06:22
Potassium 4.4 mmol/L (3.5-5.1) 08/29/23 06:22
BUN 10 mg/dl (7-17) 08/29/23 06:22
Creatinine 0.5 mg/dL (0.6-1.0) L 08/29/23 06:22
Glucose 107 mg/dl (70-99) H 08/29/23 06:22
Vital Signs and I&O:
Vital Signs
Temp Pulse Resp BP Pulse Ox
37.1 C 72 16 123/55 93
09/01/23 07:42 09/01/23 07:42 09/01/23 07:42 09/01/23 07:42 09/01/23 08:00
Vital Signs
Temp Pulse Resp BP Pulse Ox
37.1 C 72 16 123/55 93
09/01/23 07:42 09/01/23 07:42 09/01/23 07:42 09/01/23 07:42 09/01/23 08:00
Intake & Output
08/30/23 08/31/23 09/01/2324
07:59 07:59 07:59 07:59
Intake Total 6340 / 6340 540 / 540 1140 / 1140
Output Total 450 / 450 4100 / 4100
Balance 6340 / 6340 90 / 90 -2960 / -2960
Physical Exam
Physical Exam
123/55, pulse 72, respirate 16, afebrile, sats 93%
No distress, head neck exam unremarkable, lungs clear, regular rate and rhythm without obvious murmurs, abdomen obese extremities without edema, neuro grossly nonfocal, musculoskeletal intact
--- NOTE | 2023-09-01 12:13 | PTCARENOTE ---
Patient had PTT of 101.8 which is in therapeutic range. Heparin continued at 1500 units/hour and next PTT ordered for 1700. Swine Nutritionist ordered Integrilin. Patient will be transferred to IVU for administration.
--- NOTE | 2023-09-01 13:14 | CM ---
CM reviewed chart, patient transfer to IVU. Per Cardiology note, plan now transfer to [facility].
Plan; transfer to [facility].
--- NOTE | 2023-09-01 13:38 | W.PN.HOSP.TC ---
Addendum entered and electronically signed by Josue Wong MD 09/01/23 14:12:
tx to IVU
Original Note:
Today's Communication/Plan
-
Transferred to ICU for Integrilin drip
Transfer to [facility] when bed is available
Assessment / Plan
Assessment / Plan
Assessment and plan:
# New right occipital lobe enhancing cystic mass
# History of CVA
-Patient presents with new headache. Nonfocal neurologically on gross exam. Await neurology input.
-MRI brain reviewed showing mass in the right occipital lobe, benign lesion versus primary versus metastases lesion
-Neurosurgery and neurology input appreciated
-DW Neurosurgery Dr. Wooten today - due to complexities of cardiac issues which would require close joyce and postoperative monitoring recommends transfer to tertiary center. She spoke with Dr. Jose Briones of neurosurgery department at [facility]
who is accepted the patient. Patient and family in agreement.
-Cardiology recommend to go ahead and hold aspirin and Plavix and start Integrilin, Because of the history of stent specially her LAD stent have 3 episodes of the thrombosis in the past off Plavix, Integrilin could be held 2 and half hour prior to
the procedure as well as heparin drip- continued
-Continue to hold Eliquis
-Pain medication
# Right upper lobe/lingula and left opacities likely pneumonia
-Patient presents with GI symptoms including episodes of emesis. Unclear position of the patient during emesis. Right upper lobe groundglass opacity noted on Chest CT ,aspiration is a possibility depending on the position she was in during emesis.
Could also be a community-acquired pneumonia.
-COVID-negative
-Neg influenza
-Check sputum culture
-CW Ceftriaxone/doxycycline
- Would need follow up after abx
-Monitor vital sign
Tylenol as needed
# Palpable abdominal mass with N/V ;some abdominal pain prior to presentation
-CT did not show anything could be a small lipoma and a ventral hernia containing fat
# GERD/gastritis
# History of hiatal hernia
-cw Protonix twice daily
# Left shoulder pain secondary to recent Prolia injection/untreated rotator cuff tears,
His
-continue PRN Percocet
Paroxysmal atrial fibrillation
-Continue amiodarone
-Hold Eliquis
CAD with history of stent
-Continue aspirin, Plavix till seen by cardiology per recommendation of neurosurgery
Chronic HFrEF
-Continue Lasix
-Continue nebivolol
COPD
-No wheezing on examination
-Continue inhalers
Active smoker
-Nicotine patch
Essential hypertension
Orthostatic hypotension
History of childhood migraines
Hypercholesterolemia
-Continue statin, Zetia,
GERD
Hypercholesterolemia
Anxiety/depression
-Continue as needed Ativan
Full code
DVT prophylaxis�SCDs
NPO
DW neurology
DW RN
Needs prep for IV contrast allergy.
DW Dr Anselmo DUNCAN and Dr Jones cardologist at [facility] and went over the case.
She has been accepted to [facility] .
Transfer center will update with bed situation.
Total time spent on today's encounter was 52 minutes which included time spent in counseling the patient/family regarding diagnosis and treatment plan as listed above, goals of care, and symptom management. Case was discussed with nursing staff,
specialists, and care coordinators/case management. All labs and imaging personally reviewed by me. Remainder the time spent in detailed review of previous records, lab data, imaging, and other medical provider documentation.
Anticipated Discharge: Today
Subjective/Interval History
-
Date of Service: September 01, 2023
Patient still with persistent headache but pain medication helps.
Objective Data
-
Labs:
Laboratory Results
09/01/23 09/01/23 09/01/23
02:43 09:29 10:20
APTT 122.7 H 101.8 H Cancelled
Vital Signs:
Vital Signs
Temp Pulse Resp BP Pulse Ox
97.6 F 69 15 135/67 93
09/01/23 11:00 09/01/23 11:00 09/01/23 11:00 09/01/23 11:00 09/01/23 13:18
I&O
08/31/23 09/01/23 09/02/23
06:59 06:59 06:59
Intake Total 540 / 540 1140 / 1140
Output Total 450 / 450 4100 / 4100 800 / 800
Balance 90 / 90 -2960 / -2960 -800 / -800
Review of Systems
-
Respiratory: Denies Trouble Breathing
Cardiac: Denies Chest Pain
Abdomen/GI: Denies Abdominal Pain, Nausea or Vomiting
Neuro: Denies Dizzy
Physical Exam
-
General: No Apparent Distress
HEENT: Moist Mucous Membranes
Respiratory: Clear to Auscultation
Cardiac: Regular Rhythm and S1/S2
GI: Soft, Nontender, Nondistended and Normal Bowel Sounds
Neuro: AO x 3 and No Motor Deficits
Psych: Calm
Data Reviewed
-
Labs: Labs Reviewed by me
[2023-09-01] MEDS: INTEGRILIN 18000 MCG IV (13:40)
[2023-09-01] MEDS: FLUSH (NSS) 2 FLUSH IV (13:43)
[2023-09-01] MEDS: INTEGRILIN 100 IV ×3 (13:50→23:20)
--- NOTE | 2023-09-01 15:34 | PTCARENOTE ---
Received patient from to 2240 for initiation of integrillin drip. Patient assisted to recliner chair, IV heparin infusing upon transfer. Oriented to room and plan of care. Neuro status intact, SR on the monitor. IV heparin discontinued as
ordered. Patient given bolus of integrillin as ordered and now infusing at 16ml/hr. [facility] transport telephoned for clinical information on the patient however bed is not available as of yet. Patient visiting with her . Patient getting
emotional when discussing upcoming transfer and asking for ativan prior to transport. TT sent to Dr. Wong.
[2023-09-01] MEDS: COLACE 100 MG PO (17:44)
[2023-09-01] MEDS: LOVENOX 40 MG SC (17:44)
[2023-09-01] MEDS: SENOKOT 8.59999999999999964 MG PO (17:44)
--- NOTE | 2023-09-01 19:18 | PTCARENOTE ---
Patient for transfer to [facility], received call that bed is now available. PO ativan ordered by Dr. Wong to give 30' before transfer. Acute care ambulance will lemon picker the patient at 2100. Nurse Markel called from [facility] for report, notified him that
patient would not be picked up until 2099. [facility] will have their next shift call us for report. Nurse from [facility] will be accompanying the patient during ambulance transport to facility due to integrellin infusion. Patient and family updated.
--- NOTE | 2023-09-01 20:00 | PTCARENOTE ---
Assumed care of patient at 1900. Nursing assessment as documented, NIH score of 0 at this time. Patient awaiting tx to [facility], transport ETA of 2100. Awaiting call from [facility] tx center to give report. PM medications given without difficulty. Patient in
recliner with family at bedside. VSS, call gonsalez within reach, continue with current care plan.
[2023-09-01] MEDS: PACERONE 200 MG PO (20:50)
[2023-09-01] MEDS: ATIVAN 0.5 MG PO (20:50)
[2023-09-01] MEDS: ROCEPHIN 1000 MG IV (20:50)
[2023-09-01] MEDS: CRESTOR 20 MG PO (20:50)
[2023-09-01] MEDS: STERILE WATER FOR INJECTION 10 ML IV (20:50)
[2023-09-01] MEDS: ZETIA 10 MG PO (20:51)
[2023-09-01] MEDS: VITAMIN C 1500 MG PO (20:51)
[2023-09-01] MEDS: VITAMIN D3 (cholecalciferol) 50 MCG PO (20:51)
--- NOTE | 2023-09-01 21:23 | PTCARENOTE ---
Report given to Farzaneh at [facility] neuro ICU, called Acute Care tx for ETA - delayed due to technical difficulties but will be here within 30 minutes. [facility] center updated on delay.
--- NOTE | 2023-09-01 22:00 | PTCARENOTE ---
Transport arrived to pickle water pump operator patient - notified that ordered transport is BLS certified, not ACLS, and requesting we bring our own monitor and any medications needed if emergency were to happen during ride. Nursing petroleum inspector supervisor made aware and at
bedside, BLS transport cancelled at this time. [facility] made aware of situation and arranged for ACLS transport via [facility] through ground transportation. Spoke with Mandeep from [facility] and verified that RN and Medic on board for
ACLS transport and this RN is not needed for the ride. Updated Neuro [facility] Farzaneh that patient will be transported tonight via [facility]. ETA within the hour, nursing petroleum inspector supervisor made aware, patient made aware. Report given to IVU RN while
awaiting ACLS transport.
--- NOTE | 2023-09-01 23:40 | PTCARENOTE ---
Pt picked up by [facility] ambulance at 2320. chart and film given to crew. pt left via ambulance on IV Integrilin gtt.
== END 2023-09-01 23:35 | disposition short-term general hospital (02) | DRG 54 ==
LOC: IVU 22:23
PROVIDERS: Emergency Medicine; Internal Medicine; Internal Medicine Interventional Cardiology; Registered Nurse; ADMITTING PHYSICIAN Hospitalist; ATTENDING PHYSICIAN Internal Medicine; CONSULT PHYSICIAN Internal Medicine Cardiovascular Disease; CONSULT PHYSICIAN Neurological Surgery; CONSULT PHYSICIAN Psychiatry & Neurology Neurology; EMERGENCY PHYSICIAN Emergency Medicine; FAMILY PHYSICIAN Internal Medicine Geriatric Medicine
DX: C71.4 Malignant neoplasm of occipital lobe (principal); G93.6 Cerebral edema; J69.0 Pneumonitis due to inhalation of food and vomit; I50.22 Chronic systolic (congestive) heart failure; J44.0 Chronic obstructive pulmonary disease with (acute) lower respiratory infection; F17.210 Nicotine dependence, cigarettes, uncomplicated; Z79.02 Long term (current) use of antithrombotics/antiplatelets; Z79.82 Long term (current) use of aspirin; Z86.73 Personal history of transient ischemic attack (TIA), and cerebral infarction without residual deficits; K21.9 Gastro-esophageal reflux disease without esophagitis; M25.512 Pain in left shoulder; I25.10 Atherosclerotic heart disease of native coronary artery without angina pectoris; Z95.5 Presence of coronary angioplasty implant and graft; I11.0 Hypertensive heart disease with heart failure; I95.1 Orthostatic hypotension; E78.00 Pure hypercholesterolemia, unspecified; F41.9 Anxiety disorder, unspecified; F32.A Depression, unspecified; I48.0 Paroxysmal atrial fibrillation; I25.5 Ischemic cardiomyopathy; Z11.52 Encounter for screening for COVID-19
CPT/HCPCS: 70450; 70553; 71046; 71275; 73030; 74177; 80053; 81003; 81015; 82550; 82805; 83036; 83050; 85025; 85730; 87040; 87086; 87502; 87811; 92523; 92526; 92610; 93005; 94640; 96361; 96374; 96375; 97162; 97166; 99285; A9575; J1327; Q9967

== ENCOUNTER → 2023-09-25 13:44 | Outpatient (REF) | payer MEDICARE, SELFPAY ==
[2023-09-25 16:45] LABS: % Basophils 0.3 % (0-2); % Eosinophils 1.9 % (0-6); % Immature Granulocytes 0.3 % (0-0.5); % Lymphocytes 20.5 % (20.5-51.1); % Monocytes 7.5 % (1.7-9.3); % Neutrophils 69.5 % (42.2-75.2); Absolute Eosinophils 0.1 10^3/uL (0-0.7); Absolute Lymphocytes 1.5 10^3/uL (1.2-3.4); Absolute Monocytes 0.6 10^3/uL (0.1-0.6); Absolute Neutrophils 5.1 10^3/uL (1.4-6.5); Hematocrit 36.8 % (37.0-47.0); Hemoglobin 12.2 g/dL (12.0-16.0); Mean Corp Hgb Conc. 33.2 g/dL (33.0-37.0); Mean Corpuscular Hgb 33.4 pg (27.0-31.0); Mean Corpuscular Volume 100.8 fL (81.0-99.0); Mean Platelet Volume 10.7 fL (7.4-10.4); Nucleated Red Blood Cells % 0 %; Platelet Count 186 10^3/uL (130-400); Red Blood Cell Count 3.65 10^6/uL (4.20-5.40); Red Cell Dist. Width 15.4 % (11.5-14.5); White Blood Cell Count 7.3 10^3/uL (4.8-10.8)
[2023-09-25 16:56] LABS: ALT (SGPT) 99 U/L (0-35); AST (SGOT) 44 U/L (14-36); Albumin 3.2 g/dl (3.5-5.0); Alkaline Phosphatase 116 U/L (38-126); Blood Urea Nitrogen 27 mg/dl (7-17); Calcium 9.3 mg/dl (8.4-10.2); Carbon Dioxide 28 mmol/L (22-30); Chloride 100 mmol/L (98-107); Glucose 140 mg/dl (70-99); Potassium 3.8 mmol/L (3.5-5.1); Sodium 133 mmol/L (135-145); Total Bilirubin 0.6 mg/dl (0.2-1.3); Total Protein 5.7 g/dl (6.3-8.2); eGFR > 60.00
== END ==
LOC: HWLAB 13:44
PROVIDERS: ATTENDING PHYSICIAN Nurse Practitioner Family
DX: Z09 Encounter for follow-up examination after completed treatment for conditions other than malignant neoplasm (principal); I48.0 Paroxysmal atrial fibrillation
CPT/HCPCS: 36415; 80053; 85025

== ENCOUNTER 2023-09-27 12:00 | Emergency (ER) | payer MEDICARE, SELFPAY ==
[2023-09-27 12:02] VITALS: BP 129/66
--- NOTE | 2023-09-27 13:00 | ED.GENMED ---
History of Present Illness
General
Chief Complaint: Abdominal Pain
Time Seen by Provider: 09/27/23 12:30
Travel History
Have you had any contact with someone who has COVID-19?: No
Do you have any symptoms of coronavirus? Fever > 100 degrees, chills, cough, shortness of breath, sore throat, loss of taste or smell, muscle aches, or headache?: No
History of Present Illness
History of Present Illness:
Patient presents the emergency department for left lower quadrant pain. Pain started overnight last night. Endorses nausea without vomiting. Endorses chills but no fever. Feels similar to when she had diverticulitis in the denies urinary symptoms
Past History
Past History
ED Past Medical History: Arrthythmia (afib), CAD, CVA (TIA), GERD, HTN, Hypercholesterolemia, [place] and Other (Orthostatic hypotension, Diverticulitis, Diastolic heart failrue)
ED Past Surgical History: Appendectomy, Cardiac (PTCA with stent), Cholecystectomy, Gynecological (hyster) and Orthopedic (right TKR, left elbow, b/l rotator cuff)
Social History
Tobacco: Smoker
Alcohol: None
Drug: None
Personal:
Living: with family
Employment: Not employed
Family History
Family History: Other (Noncontributory)
Phy Exam
Physical Exam
Physical Exam:
GENERAL APPEARANCE: chronically ill appearing
EYES lids/conjunctiva normal
EARS/NOSE/THROAT Mucous membranes moist,
HEAD/NECK atraumatic, neck is supple.
RESPIRATORY respiratory effort normal, speaks in full sentences, no accessory muscle use. Lungs clear to auscultation without rhonchi, wheezes, rales
CARDIAC Regular rate and rhythm, no edema.
ABDOMINAL mild tenderness to the left lower quadrant. There is scattered ecchymosis across her entire abdomen from prior subcutaneous injections no large hernias appreciated. Obese abdomen.
MUSCLES/EXTREMITIES No abnormal range of motion, trace pedal edema
SKIN Warm, pink and dry. No rashes
NEUROLOGICAL Speech is clear and appropriate. Normal level of consciousness
PSYCH Normal mood and affect. Judgement/competence is appropriate
Course
Orders/Labs/Results
Orders:
Orders
09/27/23 12:58
CT Abd/pel Without Iv Or Oral Urgent
Comment:
Reason For Exam: iodine allergy, LLQ pain
09/27/23 13:15
Complete Blood Count/With Diff Urgent
Comprehensive Metabolic Panel Urgent
Lipase Urgent
PTT Urgent
Prothrombin Time Urgent
09/27/23 15:31
Acetaminophen [Tylenol] 650 mg PO NOW STA
Abnormal Lab Results
09/27/23
13:15
RBC 3.44 L 10^6/uL
(4.20-5.40)
Hgb 11.5 L g/dL
(12.0-16.0)
Hct 34.4 L %
(37.0-47.0)
MCV 100.0 H fL
(81.0-99.0)
MCH 33.4 H pg
(27.0-31.0)
RDW 15.3 H %
(11.5-14.5)
Absolute Monos (auto) 1.0 H 10^3/uL
(0.1-0.6)
Lymphocytes % 19.3 L %
(20.5-51.1)
Monocytes % 11.9 H %
(1.7-9.3)
PT 14.9 H Sec
(11.4-14.6)
Sodium 133 L mmol/L
(135-145)
Creatinine 0.5 L mg/dL
(0.6-1.0)
ALT 73 H U/L
(0-35)
Total Protein 5.7 L g/dl
(6.3-8.2)
Albumin 3.2 L g/dl
(3.5-5.0)
09/27/23 13:15
09/27/23 13:15
Vital Signs
Initial and Last Documented VS:
Initial Vital Signs
Temp Pulse Resp BP Pulse Ox
98.4 F 74 18 129/66 97
09/27/23 12:02 09/27/23 12:02 09/27/23 12:02 09/27/23 12:02 09/27/23 12:02
Last Documented Vital Signs
Temp Pulse Resp BP Pulse Ox
98.4 F 75 20 130/61 98
09/27/23 12:02 09/27/23 15:51 09/27/23 14:45 09/27/23 15:51 09/27/23 14:45
*Critical Care Note
Total Time (30-74mins, 75-104mins- exclusive of procedures): Not Applicable
ED Attending Note
ED Attending Note
ED Attending Note:
Patient with uncomplicated diverticulitis as seen on CT scan. She is nontoxic and no evidence of sepsis. Only minimal tenderness. No evidence of perforation or abscess. Will start antibiotics and recommend that she follows up with her primary
doctor.
-
Portions of this chart may have been created with voice recognition software.� Occasional wrong word or��sound alike� substitutions may have occurred due to the inherent limitations of voice recognition software.
Discharge Plan
Departure
Patient Disposition: Home (Routine Discharge)
Date of Disposition: 09/27/23
Time of Disposition: 15:07
Patient with high blood pressure during this ER visit?: No
Discharge Problem:
Diverticulitis
Instructions: Diverticulitis (DC)
Prescriptions:
New
amoxicillin-pot clavulanate 875-125 mg tablet
1 tab PO TID 10 Days Qty: 30 0RF
No Action
rosuvastatin 20 MG tablet
20 mg PO HS
clopidogrel 75 MG tablet
75 mg PO HS Qty: 0 0RF
Eliquis 5 MG tablet
5 mg PO BID Qty: 0 0RF
amiodarone 200 mg Tablet
200 mg PO HS
furosemide 80 mg Tablet
80 mg PO DAILY
ezetimibe [Zetia] 10 mg Tablet
10 mg PO HS
B12 5,000-100 mcg Lozenge
1 samia SUBLINGUAL HS
aspirin 81 mg Tablet,Delayed Release (Dr/Ec)
81 mg PO MOWEFR@2200
acetaminophen [Tylenol Extra Strength] 500 mg Tablet
1,000 mg PO BIDPRN PRN (Reason: mild pain)
famotidine 20 mg Tablet
20 mg PO [id number] PRN (Reason: indigestion)
calcium carbonate [Calcium 500] 500 mg calcium (1,250 mg) Tablet
1,500 mg PO BID
ascorbic acid (vitamin C) [Vitamin C] 500 mg Tablet
1,500 mg PO HS
ondansetron 4 mg Tablet,Disintegrating
4 mg PO [id number] PRN (Reason: nausea/vomiting)
ipratropium bromide 0.02 % Solution
0.5 mg INHALATION R Q8HPRN PRN (Reason: sob)
levalbuterol tartrate 45 mcg/actuation Hfa Aerosol Inhaler
1 puff INHALATION R Q4HPRN PRN (Reason: sob)
cholecalciferol (vitamin D3) 50 mcg (2,000 unit) Tablet
50 mcg PO HS
oxycodone 5 mg tablet
5 mg PO Q6HPRN PRN (Reason: severe pain)
Referrals:
Salvador Sterling MD [Family Provider] -
Interventions
Interventions:
*Risk Screen - Suicide Last Done: 09/27/23 12:02
*General Assessment Last Done: 09/27/23 12:02
*Neglect/Abuse Screening Last Done: 09/27/23 12:02
ED- Fall Risk Assessment Last Done: 09/27/23 13:12
*ED COVID-19 Vaccine History Last Done: 09/27/23 12:02
*Nursing Disposition Last Done: 09/27/23 15:51
PL-Fgqjin-Vwfnzrizwc Assessment Last Done: 09/27/23 13:12
Discharge Date and Time
Discharge Date/Time: 09/27/23 15:52
Print Language: STATELESS
[2023-09-27 13:05] VITALS: BMI 36.2
[2023-09-27 13:39] LABS: APTT 32.3 Sec (23.4-35.0); INR 1.16; PT 14.9 Sec (11.4-14.6)
[2023-09-27 13:53] LABS: ALT (SGPT) 73 U/L (0-35); AST (SGOT) 36 U/L (14-36); Albumin 3.2 g/dl (3.5-5.0); Alkaline Phosphatase 113 U/L (38-126); Blood Urea Nitrogen 13 mg/dl (7-17); Calcium 8.7 mg/dl (8.4-10.2); Carbon Dioxide 29 mmol/L (22-30); Chloride 102 mmol/L (98-107); Estimated Creatinine Clearance 100 ml/min; Glucose 95 mg/dl (70-99); Lipase 68 U/L (23-300); Potassium 3.9 mmol/L (3.5-5.1); Sodium 133 mmol/L (135-145); Total Bilirubin 0.6 mg/dl (0.2-1.3); Total Protein 5.7 g/dl (6.3-8.2); eGFR > 60.00
[2023-09-27 14:45] VITALS: BP 131/52
[2023-09-27 14:52] LABS: % Basophils 0.2 % (0-2); % Eosinophils 0.9 % (0-6); % Immature Granulocytes 0.4 % (0-0.5); % Lymphocytes 19.3 % (20.5-51.1); % Monocytes 11.9 % (1.7-9.3); % Neutrophils 67.3 % (42.2-75.2); Absolute Eosinophils 0.1 10^3/uL (0-0.7); Absolute Lymphocytes 1.6 10^3/uL (1.2-3.4); Absolute Neutrophils 5.5 10^3/uL (1.4-6.5); Hematocrit 34.4 % (37.0-47.0); Hemoglobin 11.5 g/dL (12.0-16.0); Mean Corp Hgb Conc. 33.4 g/dL (33.0-37.0); Mean Corpuscular Hgb 33.4 pg (27.0-31.0); Mean Platelet Volume 10.3 fL (7.4-10.4); Nucleated Red Blood Cells % 0 %; Platelet Count 221 10^3/uL (130-400); Red Blood Cell Count 3.44 10^6/uL (4.20-5.40); Red Cell Dist. Width 15.3 % (11.5-14.5); White Blood Cell Count 8.1 10^3/uL (4.8-10.8)
[2023-09-27] MEDS: TYLENOL 650 MG PO (15:35)
[2023-09-27 15:50] VITALS: BP 130/61
[2023-09-27 15:51] VITALS: BP 130/61
== END 2023-09-27 15:52 | disposition home or self-care (01) ==
LOC: EMR 12:00
PROVIDERS: EMERGENCY PHYSICIAN Emergency Medicine; FAMILY PHYSICIAN Internal Medicine Geriatric Medicine
DX: K57.32 Diverticulitis of large intestine without perforation or abscess without bleeding (principal); R10.32 Left lower quadrant pain; I48.91 Unspecified atrial fibrillation; I25.10 Atherosclerotic heart disease of native coronary artery without angina pectoris; K21.9 Gastro-esophageal reflux disease without esophagitis; I10 Essential (primary) hypertension; E78.00 Pure hypercholesterolemia, unspecified; F17.200 Nicotine dependence, unspecified, uncomplicated; Z86.73 Personal history of transient ischemic attack (TIA), and cerebral infarction without residual deficits; Z90.49 Acquired absence of other specified parts of digestive tract; Z95.5 Presence of coronary angioplasty implant and graft; Z96.641 Presence of right artificial hip joint
CPT/HCPCS: 99284; 74176; 80053; 83690; 85025; 85610; 85730

== ENCOUNTER → 2023-12-06 12:29 | Outpatient (REF) | payer MEDICARE, SELFPAY ==
[2023-12-06 13:40] LABS: % Basophils 0.8 % (0-2); % Eosinophils 0.9 % (0-6); % Immature Granulocytes 0.3 % (0-0.5); % Monocytes 11.7 % (1.7-9.3); % Neutrophils 56.3 % (42.2-75.2); Absolute Basophils 0.1 10^3/uL (0-0.2); Absolute Eosinophils 0.1 10^3/uL (0-0.7); Absolute Lymphocytes 3.1 10^3/uL (1.2-3.4); Absolute Monocytes 1.2 10^3/uL (0.1-0.6); Absolute Neutrophils 5.7 10^3/uL (1.4-6.5); Hematocrit 37.8 % (37.0-47.0); Hemoglobin 12.5 g/dL (12.0-16.0); Mean Corp Hgb Conc. 33.1 g/dL (33.0-37.0); Mean Corpuscular Hgb 33.9 pg (27.0-31.0); Mean Corpuscular Volume 102.4 fL (81.0-99.0); Nucleated Red Blood Cells % 0 %; Platelet Count 257 10^3/uL (130-400); Red Blood Cell Count 3.69 10^6/uL (4.20-5.40); Red Cell Dist. Width 15.8 % (11.5-14.5); White Blood Cell Count 10.2 10^3/uL (4.8-10.8)
[2023-12-06 14:06] LABS: ALT (SGPT) 14 U/L (0-35); AST (SGOT) 24 U/L (14-36); Albumin 3.7 g/dl (3.5-5.0); Alkaline Phosphatase 94 U/L (38-126); Blood Urea Nitrogen 18 mg/dl (7-17); Calcium 9.5 mg/dl (8.4-10.2); Carbon Dioxide 29 mmol/L (22-30); Chloride 101 mmol/L (98-107); Glucose 104 mg/dl (70-99); Potassium 3.8 mmol/L (3.5-5.1); Sodium 138 mmol/L (135-145); Total Bilirubin 0.3 mg/dl (0.2-1.3); Total Protein 6.2 g/dl (6.3-8.2); eGFR > 60.00
== END ==
LOC: REG 12:29
PROVIDERS: ATTENDING PHYSICIAN Internal Medicine Hematology & Oncology; FAMILY PHYSICIAN Nurse Practitioner Family
DX: C34.90 Malignant neoplasm of unspecified part of unspecified bronchus or lung (principal); C79.31 Secondary malignant neoplasm of brain
CPT/HCPCS: 36415; 80053; 85025

== ENCOUNTER → 2023-12-15 15:33 | Outpatient (REF) | payer MEDICARE, SELFPAY ==
[2023-12-15 17:38] LABS: % Basophils 0.7 % (0-2); % Eosinophils 1.5 % (0-6); % Immature Granulocytes 0.4 % (0-0.5); % Lymphocytes 34.5 % (20.5-51.1); % Monocytes 10.7 % (1.7-9.3); % Neutrophils 52.2 % (42.2-75.2); Absolute Basophils 0.1 10^3/uL (0-0.2); Absolute Eosinophils 0.1 10^3/uL (0-0.7); Absolute Lymphocytes 2.9 10^3/uL (1.2-3.4); Absolute Monocytes 0.9 10^3/uL (0.1-0.6); Absolute Neutrophils 4.4 10^3/uL (1.4-6.5); Hematocrit 39.2 % (37.0-47.0); Mean Corp Hgb Conc. 33.2 g/dL (33.0-37.0); Mean Corpuscular Hgb 33.1 pg (27.0-31.0); Mean Corpuscular Volume 99.7 fL (81.0-99.0); Mean Platelet Volume 10.8 fL (7.4-10.4); Nucleated Red Blood Cells % 0 %; Platelet Count 306 10^3/uL (130-400); Red Blood Cell Count 3.93 10^6/uL (4.20-5.40); Red Cell Dist. Width 15.2 % (11.5-14.5); White Blood Cell Count 8.5 10^3/uL (4.8-10.8)
[2023-12-15 17:53] LABS: ALT (SGPT) 11 U/L (0-35); AST (SGOT) 20 U/L (14-36); Alkaline Phosphatase 92 U/L (38-126); Blood Urea Nitrogen 17 mg/dl (7-17); Calcium 9.4 mg/dl (8.4-10.2); Carbon Dioxide 31 mmol/L (22-30); Chloride 102 mmol/L (98-107); Glucose 105 mg/dl (70-99); Potassium 4.6 mmol/L (3.5-5.1); Sodium 138 mmol/L (135-145); Total Bilirubin 0.4 mg/dl (0.2-1.3); Total Protein 6.5 g/dl (6.3-8.2); eGFR > 60.00
== END ==
LOC: REG 15:33
PROVIDERS: ATTENDING PHYSICIAN Internal Medicine Hematology & Oncology; FAMILY PHYSICIAN Internal Medicine Geriatric Medicine
DX: C34.90 Malignant neoplasm of unspecified part of unspecified bronchus or lung (principal); C79.31 Secondary malignant neoplasm of brain
CPT/HCPCS: 36415; 80053; 85025